=== PATIENT | female | born 1955 | race Caucasian/White ===

== ENCOUNTER 2020-02-25 19:18 | Emergency (ER) | payer BC ==
[~2020-02-25] VITALS: Ht 152.4 cm; Wt 53.6 kg
[~2020-02-25 19:18] MED LIST: ALPR0.25 PO; AMIT50TA PO; ASPI-612 PO; ATOR20TA58 PO; ESTR0.5T PO; HYDR-2761 PO; METO25TA4 PO; TICA90TA PO
[2020-02-25] MEDS ORDERED: IV NORMAL SALINE 1000ML BAG 1,000 ML IV SCH (19:40)
[2020-02-25] MEDS ORDERED: ASPIRIN CHEWABLE 81 MG TABLET. PO ONE (19:45)
[2020-02-25 19:58] LABS: BASO % 1 % (0-3); EOS % 1 % (0-3); HEMATOCRIT 47.2 % (36.0-47.0); HEMOGLOBIN 15.9 g/dL (12.0-15.5); LYMPH % 49 % (24-48); MEAN CORPUSCULAR HEMOGLOBIN 31 pg (25-35); MEAN CORPUSCULAR HGB CONC 34 g/dL (31-37); MEAN CORPUSCULAR VOLUME 92 fL (79-100); MONO # 0.4 x10^3/uL (0.0-1.1); MONO % 7 % (0-9); NEUT # 2.6 x10^3/uL (1.8-7.7); NEUT % 43 % (31-73); PLATELET COUNT 195 x10^3/uL (140-400); RED BLOOD COUNT 5.15 x10^6/uL (3.50-5.40); RED CELL DISTRIBUTION WIDTH 14.4 % (11.5-14.5); WHITE BLOOD COUNT 6.1 x10^3/uL (4.0-11.0)
[2020-02-25 20:07] LABS: CALCIUM 9.2 mg/dL (8.5-10.1); CREATININE 0.9 mg/dL (0.6-1.0); GFR 63.2; POTASSIUM 3.7 mmol/L (3.5-5.1)
--- NOTE | 2020-02-25 20:11 | PHYS DOC ---
Past Medical History Past Medical History: Depression, Hypertension, [place], Other Additional Past Medical Histor: STEMI Past Surgical History: Hysterectomy, Other Additional Past Surgical Histo: CARDIAC STENT Smoking Status: Former Smoker Alcohol Use: None Drug Use: Marijuana General Adult EDM: Chief Complaint: SHORTNESS OF BREATH HPI: HPI: Patient is a 64 year old female who presents with complaint of cough and shortness of breath for the last few days. Patient also indicates that she has had some right upper abdominal pain and a little nausea but no vomiting. She states that last night she had diarrhea. She complains of body aches. She rates the pain in her abdomen currently at a 4 out of 10. She is not aware of any exacerbating or alleviating factors. She is not aware of any fever.[] Review of Systems: Review of Systems: Constitutional: Denies fever or chills. [] Respiratory: Complains of cough and shortness of breath. [] Cardiovascular: Denies chest pain or edema. [] GI: Complains of right upper abdominal pain with nausea. Denies vomiting but has had some diarrhea. [] Integument: Denies rash. [] Neurologic: Denies headache, focal weakness or sensory changes. [] A full 10 point review of systems has been reviewed and is otherwise negative. Heart Score: Risk Factors: Risk Factors: DM, Current or recent (<one month) smoker, HTN, HLP, family history of CAD, obesity. Risk Scores: Score 0 - 3: 2.5% MACE over next 6 weeks - Discharge Home Score 4 - 6: 20.3% MACE over next 6 weeks - Admit for Clinical Observation Score 7 - 10: 72.7% MACE over next 6 weeks - Early Invasive Strategies Current Medications: Current Medications Medications (Trade) Dose Ordered Sig/[facility] Start Time Stop Time Status Last Admin Dose Admin Aspirin (Aspirin Chewable) 324 mg 1X ONCE 02/25/20 19:45 02/25/20 19:46 DC 02/25/20 19:53 324 MG Sodium Chloride 1,000 ml @ 1,000 mls/hr Q1H 02/25/20 19:40 02/25/20 20:39 02/25/20 19:50 1,000 MLS/HR Allergies: Allergies: Allergies Coded Allergies Type Severity Reaction Last Updated Verified Penicillins Allergy Intermediate UNKNOWN 03/22/16 Yes Physical Exam: PE: Constitutional: Well developed, well nourished, no acute distress, non-toxic appearance. [] HENT: Normocephalic, atraumatic, bilateral external ears normal, oropharynx moist, no oral exudates, nose normal. [] Eyes: PERRLA, EOMI, conjunctiva normal, no discharge. [] Neck: Normal range of motion, no tenderness, supple, no stridor. [] Cardiovascular:Heart rate regular rhythm, no murmur [] Lungs & Thorax: Bilateral breath sounds clear to auscultation [] Abdomen: Bowel sounds normal, soft, no tenderness, no masses, no pulsatile masses. [] Skin: Warm, dry, no erythema, no rash. [] Back: No tenderness, no CVA tenderness. [] Extremities: No tenderness, no cyanosis, no clubbing, ROM intact, no edema. [] Neurologic: Alert and oriented X 3, normal motor function, normal sensory function, no focal deficits noted. [] Psychologic: Affect normal, judgement normal, mood normal. [] Current Patient Data: Labs: Laboratory Tests Test 02/25/20 19:45 White Blood Count 6.1 x10^3/uL (4.0-11.0) Red Blood Count 5.15 x10^6/uL (3.50-5.40) Hemoglobin 15.9 g/dL (12.0-15.5) H Hematocrit 47.2 % (36.0-47.0) H Mean Corpuscular Volume 92 fL (79-100) Mean Corpuscular Hemoglobin 31 pg (25-35) Mean Corpuscular Hemoglobin Concent 34 g/dL (31-37) Red Cell Distribution Width 14.4 % (11.5-14.5) Platelet Count 195 x10^3/uL (140-400) Neutrophils (%) (Auto) 43 % (31-73) Lymphocytes (%) (Auto) 49 % (24-48) H Monocytes (%) (Auto) 7 % (0-9) Eosinophils (%) (Auto) 1 % (0-3) Basophils (%) (Auto) 1 % (0-3) Neutrophils # (Auto) 2.6 x10^3/uL (1.8-7.7) Lymphocytes # (Auto) 3.0 x10^3/uL (1.0-4.8) Monocytes # (Auto) 0.4 x10^3/uL (0.0-1.1) Eosinophils # (Auto) 0.0 x10^3/uL (0.0-0.7) Basophils # (Auto) 0.0 x10^3/uL (0.0-0.2) Laboratory Tests 02/25/20 19:45 EKG: EKG: EKG demonstrates sinus rhythm with rate of 59.[] Radiology/Procedures: Radiology/Procedures: [] Impression: PROCEDURE: PORTABLE CHEST 1V PORTABLE CHEST 1V 02/25/2020 7:40 PM INDICATION: Shortness of breath, chest pain COMPARISON: None available TECHNIQUE: Portable frontal view of the chest is provided. FINDINGS: The cardiomediastinal silhouette is within normal limits. Lungs are clear. Stable calcified left hilar lymph node. There are no significant pleural effusions. There is no pulmonary vascular congestion. No pneumothorax. No suspicious osseous abnormality. IMPRESSION: There is no acute cardiopulmonary process. Electronically signed by: Gabrielle Jacobo MD (02/25/2020 8:08 PM) [facility] PROCEDURE: ABDOMEN LTD ABDOMEN LTD History: Right upper quadrant pain Comparison: None. Findings: Multiple sonographic images of the abdomen are submitted. Gallbladder is present without intraluminal abnormality, wall thickening, or pericholecystic fluid. Hepatic echotexture is within normal limits, no focal hepatic lesion demonstrated. Right lobe of the liver measured 15.1 cm longitudinal. Common bile duct is borderline 0.6 cm. There is no abnormality of the visualized pancreas. Right kidney measured 10 x 4 x 4.6 cm. There is right renal pelviectasis. There is segmental visualization of the inferior vena cava. Impression: 1. There is right renal pelviectasis. Common bile duct is borderline in caliber. Electronically signed by: Bryon Rich MD (02/25/2020 9:01 PM) [facility] Course & Med Decision Making: Course & Med Decision Making Pertinent Labs and Imaging studies reviewed. (See chart for details) [] Dragon Disclaimer: Dragon Disclaimer: This electronic medical record was generated, in whole or in part, using a voice recognition dictation system. COVID-19 Patient Risks: Age 65 or older: No Sign of co-morbidity: Yes Exp to person + for COVID: No Exp to PUI: No Travel from affected area: No Lower respiratory symptoms: Yes Fever: No Other: No PPE Use: Full PPE with N95 mask or PAPR: Yes Departure Departure Impression: Primary Impression: Bronchitis Additional Impressions: Dyspnea Qualified Codes: R06.00 - Dyspnea, unspecified Suspected COVID-19 virus infection Disposition: HOME, SELF-CARE Condition: STABLE Referrals: BRITTANEY ANGELO (PCP) Patient Instructions: Bronchitis, Shortness of Breath Additional Instructions: I would recommend home quarantine for the next 14 days. Take prescribed medication as directed. Scripts Azithromycin (ZITHROMAX) 250 Mg Tablet 1 PKG PO UD, #6 TAB Prov: EMORY OH Jr. DO 02/25/20 EMORY OH Jr. DO Feb 25, 2020 20:11
[2020-02-25 20:14] LABS: ALBUMIN 3.9 g/dL (3.4-5.0); TOTAL BILIRUBIN 0.5 mg/dL (0.2-1.0); TOTAL PROTEIN 7.8 g/dL (6.4-8.2)
[2020-02-25] MEDS ORDERED: cloNIDine HCL 0.1 MG TABLET PO ONE (20:15)
--- NOTE | 2020-02-25 21:04 | RAD ---
ABDOMEN LTD History: Right upper quadrant pain Comparison: None. Findings: Multiple sonographic images of the abdomen are submitted. Gallbladder is present without intraluminal abnormality, wall thickening, or pericholecystic fluid. Hepatic echotexture is within normal limits, no focal hepatic lesion demonstrated. Right lobe of the liver measured 15.1 cm longitudinal. Common bile duct is borderline 0.6 cm. There is no abnormality of the visualized pancreas. Right kidney measured 10 x 4 x 4.6 cm. There is right renal pelviectasis. There is segmental visualization of the inferior vena cava. Impression: 1. There is right renal pelviectasis. Common bile duct is borderline in caliber. Electronically signed by: Bryon Rich MD (02/25/2020 9:01 PM) [facility]
[2020-02-25 21:13] LABS: BILIRUBIN,URINE NEGATIVE (NEG); CLARITY,URINE CLEAR; COLOR,URINE YELLOW; NITRITE,URINE NEGATIVE (NEG); PROTEIN,URINE NEGATIVE (NEG-TRACE); UROBILINOGEN,URINE 0.2 mg/dL (0.2 mg/dL)
[2020-02-25 21:22] LABS: BACTERIA,URINE 0 /HPF (0-FEW); SQUAMOUS EPITHELIAL CELL,UR FEW /LPF
[2020-02-25] MEDS ORDERED: AZIT250T PO (22:24)
[2020-02-25 22:32] VITALS: BP 183/84
--- NOTE | 2020-02-26 15:45 | EKG ---
[facility] [address] [place] [address] Test Date: 2020-02-25 Test Time: 19:29:06 Pat Name: PAKO SCHAFER Department: Room: Gender: F [employer]: : 1955 Requested By: EMORY OH Order Number: [id number] Reading MD: Gael Badillo Measurements Intervals [place] Rate: 59 P: MT: QRS: 75 QRSD: 92 T: 84 QT: 432 QTc: 432 Interpretive Statements SINUS RHYTHM Electronically Signed On 02-27-2020 20:03:52 CDT by Gael Badillo
== END 2020-02-25 22:45 | disposition home or self-care (01) ==
LOC: ER 19:18
DX: J40 Bronchitis, not specified as acute or chronic (principal); Z03.818 Encounter for observation for suspected exposure to other biological agents ruled out; I10 Essential (primary) hypertension; I25.2 Old myocardial infarction; Z87.891 Personal history of nicotine dependence; Z95.5 Presence of coronary angioplasty implant and graft; Z88.0 Allergy status to penicillin
CPT/HCPCS: 36415; 71045; 76705; 80053; 81001; 83605; 83690; 83735; 83880; 84484; 85025; 87040; 87635; 93005; 96360; 99285; J7030

== ENCOUNTER 2020-03-03 23:36 | Observation (INO) | payer BC ==
[~2020-03-03] VITALS: Ht 152.4 cm; Wt 46.9 kg
[~2020-03-03 23:36] MED LIST changes: +AZIT250T PO
[2020-03-04] VITALS (7 sets, daily range): BP systolic 84–125; BP diastolic 55–106
[2020-03-04] MEDS ORDERED: ATOR80TA2 PO (00:14)
[2020-03-04] MEDS ORDERED: LOSA-73 PO (00:14)
[2020-03-04] MEDS ORDERED: TICA60TA PO (00:14)
[2020-03-04] MEDS: ALPRAZolam 0.25 MG TABLET PO PRN ×3 (00:38→18:49)
[2020-03-04] MEDS: LOSARTAN POTASSIUM 50 MG TABLET. PO SCH ×2 (00:39→20:41)
[2020-03-04] MEDS ORDERED: AZITHROMYCIN 250 MG TABLET. PO SCH ×2 (01:00→09:00)
[2020-03-04 05:14] LABS: BASO % 0 % (0-3); EOS % 0 % (0-3); HEMATOCRIT 44.2 % (36.0-47.0); HEMOGLOBIN 14.6 g/dL (12.0-15.5); LYMPH % 22 % (24-48); MEAN CORPUSCULAR HEMOGLOBIN 31 pg (25-35); MEAN CORPUSCULAR HGB CONC 33 g/dL (31-37); MEAN CORPUSCULAR VOLUME 93 fL (79-100); MONO % 1 % (0-9); NEUT # 3.6 x10^3/uL (1.8-7.7); NEUT % 77 % (31-73); PLATELET COUNT 157 x10^3/uL (140-400); RED BLOOD COUNT 4.75 x10^6/uL (3.50-5.40); RED CELL DISTRIBUTION WIDTH 13.8 % (11.5-14.5); WHITE BLOOD COUNT 4.7 x10^3/uL (4.0-11.0)
[2020-03-04 05:26] LABS: CALCIUM 8.7 mg/dL (8.5-10.1); POTASSIUM 4.2 mmol/L (3.5-5.1)
[2020-03-04] MEDS: ASPIRIN ENTERIC COATED 81 MG TABLET.DR. PO SCH (08:10)
[2020-03-04] MEDS: BRILINTA 60 MG PO SCH ×2 (08:10→20:40)
[2020-03-04] MEDS ORDERED: TICAGRELOR 90 MG TABLET. PO SCH (09:00)
[2020-03-04] MEDS: METOPROLOL TART IMMED RELEASE 25 MG TABLET. PO SCH ×2 (09:00→20:41)
--- NOTE | 2020-03-04 10:34 | PDOC2 ---
CONSULT Date of Consult Date of Consult DATE: 03/04/20 TIME: 10:27 Reason for Consult Reason for Consult: Chest pain Referring Physician Referring Physician: Dr. Goodrich Identification/Chief Complaint Chief Complaint Chest pain and headache Source Source: Chart review, Patient History of Present Illness Reason for Visit: The patient is a 64-year-old female who was initially seen in the [facility] emergency room due to chest pain and headache. Patient had a CT head scan that showed no acute intracranial changes. Chest x-ray showed no acute changes but was positive for emphysema. Her EKG showed nonspecific T wave changes. Troponin was normal. The patient has a previous cardiac history including an inferior wall ST elevated myocardial infarction on 02/26/2016 at which time she received a 3.0 x 23 drug-eluting stent to the right coronary artery. She also has a history of difficult to control hypertension and hyperlipidemia. Patient was transferred to [place] for further work-up of her chest discomfort. At the present time she is resting relatively comfortably. She denies any chest pain. A second troponin was normal at less than 0.017. Past Medical History Cardiovascular: CAD, HTN, [place], Hyperlipidemia Pulmonary: Bronchitis, COPD, Other (Emphysema) Psych: Depression Past Surgical History Past Surgical History: , Hysterectomy, Other (Coronary stent.) Family History Family History: Hypertension Social History <1 pack per day ALCOHOL: rare Current Medications Current Medications Current Medications Alprazolam (Xanax) 0.25 mg PRN BID PRN PO ANXIETY / AGITATION Last administered on 03/04/20at 00:38; Start 03/04/20 at 00:30 Aspirin (Ecotrin) 81 mg DAILYWBKFT PO Last administered on 03/04/20at 08:10; Start 03/04/20 at 08:00 Azithromycin (Zithromax) 250 mg DAILY PO ; Start 03/04/20 at 09:00; Stop 03/04/20 at 00:41; Status DC Losartan Potassium (Cozaar) 50 mg HS PO Last administered on 03/04/20at 00:39; Start 03/04/20 at 00:30 Metoprolol Tartrate (Lopressor) 12.5 mg BID PO ; Start 03/04/20 at 09:00 Amitriptyline HCl (Elavil) 50 mg QHS PO ; Start 03/04/20 at 21:00 Atorvastatin Calcium (Lipitor) 80 mg HS PO ; Start 03/04/20 at 21:00 Ticagrelor (Brilinta) 60 mg BID PO ; Start 03/04/20 at 09:00; Stop 03/04/20 at 01:04; Status DC Azithromycin (Zithromax) 250 mg HS PO Last administered on 03/04/20at 01:15; Start 03/04/20 at 01:00; Stop 03/06/20 at 21:30 Non-Formulary Medication 1 ea BID PO Last administered on 03/04/20at 08:10; Start 03/04/20 at 09:00 Active Scripts Active Zithromax (Azithromycin) 250 Mg Tablet 1 Pkg PO UD Metoprolol Tartrate 25 Mg Tablet 12.5 Mg PO BID Aspirin Ec (Aspirin) 81 Mg Tablet. 81 Mg PO DAILYWBKFT Reported Lipitor (Atorvastatin Calcium) 80 Mg Tablet 80 Mg PO HS Brilinta (Ticagrelor) 60 Mg Tablet 60 Mg PO BID Losartan Potassium 50 Mg Tablet 50 Mg PO DAILY Xanax (Alprazolam) 0.25 Mg Tablet 0.25 Mg PO BID PRN Amitriptyline Hcl 50 Mg Tablet 1 Tab PO QHS Allergies Allergies: Coded Allergies: Penicillins (Verified Allergy, Intermediate, UNKNOWN, 03/22/16) ROS General: YES: Fatigue Respiratory: YES: Shortness of breath Cardiovascular: yes Chest Pain Physical Exam General: No acute distress Lungs: Other (Mildly decreased breath sounds) Heart: Regular rate Abdomen: Normal bowel sounds Vitals VITALS Vital Signs Date Time Temp Pulse Resp B/P (MAP) Pulse Ox O2 Delivery O2 Flow Rate FiO2 03/04/20 09:00 50 84/55 03/04/20 08:01 Room Air 03/04/20 07:00 98.6 18 97 98.6 Labs Labs Laboratory Tests Test 03/04/20 04:30 White Blood Count 4.7 x10^3/uL (4.0-11.0) Red Blood Count 4.75 x10^6/uL (3.50-5.40) Hemoglobin 14.6 g/dL (12.0-15.5) Hematocrit 44.2 % (36.0-47.0) Mean Corpuscular Volume 93 fL (79-100) Mean Corpuscular Hemoglobin 31 pg (25-35) Mean Corpuscular Hemoglobin Concent 33 g/dL (31-37) Red Cell Distribution Width 13.8 % (11.5-14.5) Platelet Count 157 x10^3/uL (140-400) Neutrophils (%) (Auto) 77 % (31-73) Lymphocytes (%) (Auto) 22 % (24-48) Monocytes (%) (Auto) 1 % (0-9) Eosinophils (%) (Auto) 0 % (0-3) Basophils (%) (Auto) 0 % (0-3) Neutrophils # (Auto) 3.6 x10^3/uL (1.8-7.7) Lymphocytes # (Auto) 1.0 x10^3/uL (1.0-4.8) Monocytes # (Auto) 0.0 x10^3/uL (0.0-1.1) Eosinophils # (Auto) 0.0 x10^3/uL (0.0-0.7) Basophils # (Auto) 0.0 x10^3/uL (0.0-0.2) Sodium Level 144 mmol/L (136-145) Potassium Level 4.2 mmol/L (3.5-5.1) Chloride Level 110 mmol/L (98-107) Carbon Dioxide Level 23 mmol/L (21-32) Anion Gap 11 (6-14) Blood Urea Nitrogen 27 mg/dL (7-20) Creatinine 1.0 mg/dL (0.6-1.0) Estimated GFR (Cockcroft-Gault) 56.0 Glucose Level 187 mg/dL (70-99) Calcium Level 8.7 mg/dL (8.5-10.1) Troponin I Quantitative < 0.017 ng/mL (0.000-0.055) Laboratory Tests Test 03/04/20 04:30 White Blood Count 4.7 x10^3/uL (4.0-11.0) Red Blood Count 4.75 x10^6/uL (3.50-5.40) Hemoglobin 14.6 g/dL (12.0-15.5) Hematocrit 44.2 % (36.0-47.0) Mean Corpuscular Volume 93 fL (79-100) Mean Corpuscular Hemoglobin 31 pg (25-35) Mean Corpuscular Hemoglobin Concent 33 g/dL (31-37) Red Cell Distribution Width 13.8 % (11.5-14.5) Platelet Count 157 x10^3/uL (140-400) Neutrophils (%) (Auto) 77 % (31-73) Lymphocytes (%) (Auto) 22 % (24-48) Monocytes (%) (Auto) 1 % (0-9) Eosinophils (%) (Auto) 0 % (0-3) Basophils (%) (Auto) 0 % (0-3) Neutrophils # (Auto) 3.6 x10^3/uL (1.8-7.7) Lymphocytes # (Auto) 1.0 x10^3/uL (1.0-4.8) Monocytes # (Auto) 0.0 x10^3/uL (0.0-1.1) Eosinophils # (Auto) 0.0 x10^3/uL (0.0-0.7) Basophils # (Auto) 0.0 x10^3/uL (0.0-0.2) Sodium Level 144 mmol/L (136-145) Potassium Level 4.2 mmol/L (3.5-5.1) Chloride Level 110 mmol/L (98-107) Carbon Dioxide Level 23 mmol/L (21-32) Anion Gap 11 (6-14) Blood Urea Nitrogen 27 mg/dL (7-20) Creatinine 1.0 mg/dL (0.6-1.0) Estimated GFR (Cockcroft-Gault) 56.0 Glucose Level 187 mg/dL (70-99) Calcium Level 8.7 mg/dL (8.5-10.1) Troponin I Quantitative < 0.017 ng/mL (0.000-0.055) Images Images Donnell's CT scan of the head showed no acute changes. Chest x-ray shows no acute changes but is positive for emphysema Assessment/Plan Assessment/Plan 1. Chest pain. Patient's pain has largely resolved. Initial troponins are normal. EKG shows no acute ischemic changes. However the patient does have a history of a myocardial infarction in 2016. We will continue present med ications including beta-blockers and aspirin. Will rule out for myocardial infarction. We will check an echocardiogram tomorrow. Further ischemic testing based on her clinical course. 2. Headache. Improved. No acute changes on CT scanning. Patient does have a history of difficult to control hypertension 3. Hypertension. Reasonable control at this time. We will continue present treatments. 4. Hyperlipidemia. Will continue statins and check lab. 5. COPD/emphysema with continued tobacco abuse. Thank you for allowing us to participate in the care of your patient. PAYTON PLASENCIA MD March 04, 2020 10:34
[2020-03-04] MEDS ORDERED: ACETAMINOPHEN 325 MG TABLET. PO PRN (14:15)
--- NOTE | 2020-03-04 14:42 | EKG ---
[facility] [address] [place] [address] Test Date: 2020-03-04 Test Time: 14:38:52 Pat Name: PAKO SCHAFER Department: Room: 200 1 Gender: F It Professional: : 1955 Requested By: PAYTON PLASENCIA Order Number: [id number] Reading MD: Gael Badillo Measurements Intervals [place] Rate: 63 P: 78 [place]: 142 QRS: 77 QRSD: 100 T: 79 QT: 472 QTc: 487 Interpretive Statements SINUS RHYTHM PROLONGED QT Electronically Signed On 03-06-2020 8:58:45 CDT by Gael Badillo
--- NOTE | 2020-03-04 16:45 | PDOC ---
Provider Note Provider Note History and physical dictated [id number] JANETH MAHMOOD MD March 04, 2020 16:45
[2020-03-04] MEDS: ACETAMINOPHEN 500 MG TABLET PO PRN (17:02)
--- NOTE | 2020-03-04 17:14 | HP ---
ADMIT DATE: 03/03/2020 HISTORY OF PRESENT ILLNESS: This patient is a lynn 64-year-old woman who is a continuity outpatient of Dr. Gao at [facility] who uses the [facility] hospitalist here at [facility]. I am rounding for them this weekend. The patient has had about 2 weeks of sharp respirophasic mid substernal chest pain that initially was accompanied by significant cough without congestion. At baseline, she does have COPD, but that has not given her much trouble through the years. She has a long history of tobacco smoking, but tells me that she quit 2 weeks ago when she fell sick. She was in the Emergency Department here at [facility] about 10 days ago and concern was for COVID-19 at that time. Chest x-ray was unremarkable and the COVID PCR was sent to [facility]. I do not see results reported though presumably negative. The patient tells me that she has been carefully sheltering in place for the last 8 weeks as well as her and they are both retired. They have not been out and about and her children are helping her with the grocery shopping. The patient was given an antibiotic in the ER 10 days ago, which she took and her symptoms persisted. Her mid substernal chest pressure seemed to escalate over the last week and she was quite concerned about this and so presented to the [facility] Emergency Department given that [place] was quite busy when she was here 10 days ago. Because [facility] did not have the ability to consult Cardiology, they transferred her here yesterday evening. I am seeing her now within 24 hours of admission, she says she is feeling a little bit more comfortable. Cardiology has already assessed her and their assistance is appreciated. The patient does have a history of myocardial infarction 4 years ago for which stent was placed. She has not had routine followup with Cardiology, but has been careful about following up with primary care and taking her aspirin. She does tell me that her blood pressure and cholesterol control have been on target. The patient denies any fever, chills, headache, abdominal pain, nausea, vomiting, or change in her bowel habits. All other systems are reviewed and are negative. PAST MEDICAL HISTORY: 1. Longstanding tobacco use. 2. Known COPD that has not given her any issues unless she developed a lower respiratory infection. 3. The patient does report weight loss of about 16 pounds in the last 6 months. She is not sure why. 4. History of myocardial infarction. 5. Hypertension. 6. Anxiety. 7. Hyperlipidemia. MEDICATIONS: Please see the medication reconciliation form. SOCIAL HISTORY: The patient is happily . She and her live independently in their own home. She smoked over a pack per day of tobacco for many years with a greater than 30-[id number]-[id number] history. She denies any alcohol or illicit drugs. FAMILY HISTORY: Reviewed in full and noncontributory to the present illness. PHYSICAL EXAMINATION: VITAL SIGNS: Reviewed since admission and are notable for that the patient has been afebrile, blood pressure has been in the low 100s/70s, heart rate is in the 40s-50s and regular. She is breathing comfortably and saturating 96% on room air. GENERAL: She is a pleasant, thin woman, who appears her stated age, alert and oriented x 3, no acute distress. HEENT: Notable for an excoriated lesion on her right face, which she says is chronic. NECK: Soft and supple. No adenopathy or thyromegaly noted. CHEST: Bilateral equal air entry, though diminished throughout. No crackles or wheezes are noted. HEART: S1, S2 normal. Regular rate and rhythm. No murmurs or gallops are noted. ABDOMEN: Soft, nontender, nondistended. No masses or organomegaly noted. EXTREMITIES: Unremarkable for acute abnormality. Labs and other studies I am unable to access the [facility] records. LABORATORY DATA: On admission here early this morning are notable for normal creatinine. Electrolytes are on target. Troponin is 0.017. Hemoglobin is 14.6, platelet count is 157. EKG done this morning is unavailable for viewing, but per Cardiology has been unremarkable. ASSESSMENT AND PLAN: A 64-year-old woman with over 2 weeks of intermittent sharp substernal respirophasic chest pain, admitted with concern for acute coronary syndrome given her history. Pain certainly sounds atypical for acute coronary syndrome, but appreciate cardiology input and agree with continues assessment. We will also proceed with CT chest, abdomen and pelvis given the patient's longstanding tobacco use and reported weight loss. We will track down the formal results of the COVID test from 10 days ago, which appears to be negative from the record. Inpatient status is most appropriate as we anticipate a length of stay at least 2-3 midnights while we work this through. The patient is up moving about the room and does not need anything else for DVT prophylaxis. JANETH MAHMOOD MD DR: JESSICA/gama JOB#: [id number] / [id number] BRITTANEY Freeman
[2020-03-04] MEDS: ATORVASTATIN CALCIUM 40 MG TABLET. PO SCH (20:40)
[2020-03-04] MEDS: AMITRIPTYLINE HCL 25 MG TABLET. PO SCH (20:40)
[2020-03-04] MEDS: LACTOBACILLUS RHAMNOSUS GG 1 CAPSULE. PO SCH (20:40)
[2020-03-05 03:09] VITALS: BP 88/55
[2020-03-05 05:27] LABS: ALBUMIN 2.9 g/dL (3.4-5.0); CALCIUM 8.1 mg/dL (8.5-10.1); POTASSIUM 4.1 mmol/L (3.5-5.1); TOTAL BILIRUBIN 0.4 mg/dL (0.2-1.0); TOTAL PROTEIN 5.9 g/dL (6.4-8.2)
[2020-03-05 05:31] LABS: BASO % 0 % (0-3); EOS % 0 % (0-3); HEMATOCRIT 41.4 % (36.0-47.0); HEMOGLOBIN 13.8 g/dL (12.0-15.5); LYMPH % 28 % (24-48); MEAN CORPUSCULAR HEMOGLOBIN 31 pg (25-35); MEAN CORPUSCULAR HGB CONC 33 g/dL (31-37); MEAN CORPUSCULAR VOLUME 92 fL (79-100); MONO # 0.7 x10^3/uL (0.0-1.1); MONO % 7 % (0-9); NEUT # 7.1 x10^3/uL (1.8-7.7); NEUT % 65 % (31-73); PLATELET COUNT 148 x10^3/uL (140-400); RED BLOOD COUNT 4.49 x10^6/uL (3.50-5.40); RED CELL DISTRIBUTION WIDTH 14.1 % (11.5-14.5); WHITE BLOOD COUNT 10.9 x10^3/uL (4.0-11.0)
[2020-03-05 05:38] LABS: DIRECT BILIRUBIN 0.1 mg/dL (0.0-0.2)
[2020-03-05 05:39] LABS: CHOLESTEROL/HDL RATIO 1.9
[2020-03-05 07:00] VITALS: BP 101/60
[2020-03-05] MEDS: ALPRAZolam 0.25 MG TABLET PO PRN ×2 (07:42→20:27)
[2020-03-05] MEDS ORDERED: CONTRAST GIVEN. MC PRN (08:45)
[2020-03-05] MEDS ORDERED: IOHEXOL 240 MG/ML 50ML VIAL. PO ONE (09:00)
[2020-03-05] MEDS ORDERED: IOHEXOL 300 MG/ML 100ML VIAL. IV ONE (09:00)
--- NOTE | 2020-03-05 09:54 | RAD ---
EXAM: CT Chest, Abdomen, and Pelvis with IV contrast INDICATION: Unexplained weight loss. TECHNIQUE: Multi-detector row CT images were acquired from the thoracic inlet through the ischial tuberosities with the use of IV contrast. Sagittal and coronal images were acquired from the transaxial data. All CT scans performed at this facility utilize dose optimization techniques as appropriate to the exam, including the following: Automated exposure control and adjustment of the mA and/or KV according to patient size (this includes techniques or standardized protocols for targeted exams where dose is indication/reason for exam). IV CONTRAST: Administered ORAL CONTRAST: Administered COMPARISON: Abdomen pelvis CT with IV contrast of 03/22/2016 FINDINGS: CHEST: CARDIOVASCULAR: Unremarkable MEDIASTINUM & SERGE: No adenopathy or masses. LUNGS: Mild centrilobular emphysematous change. There is a 6 mm nodule in the right lateral costophrenic angle (best appreciated on axial image 54 of series 2) as well as minimal bibasilar atelectatic changes in the posterior costophrenic angles. Otherwise no infiltrate, nodule, or other focal abnormality. PLEURAL SPACE: No pleural effusions or pneumothorax. OSSEOUS & SOFT TISSUE: Unremarkable ABDOMEN/PELVIS: LIVER: Unremarkable BILIARY SYSTEM: Gallbladder is unremarkable. Bile ducts are not dilated. PANCREAS: Unremarkable SPLEEN: Unremarkable ADRENALS: Unremarkable KIDNEYS & URETERS: Unremarkable BLADDER: Unremarkable REPRODUCTIVE ORGANS: Hysterectomy. GASTROINTESTINAL: The stomach, small bowel, and colon are unremarkable. The appendix is normal. MESENTERY/PERITONEUM/RETROPERITONEUM: Unremarkable VASCULAR: Unremarkable LYMPH NODES: No adenopathy OSSEOUS & SOFT TISSUES: Lumbar spinal degenerative changes and mild osteopenia. IMPRESSION: 1. No specific findings to explain unexplained weight loss. In particular, no evidence of malignancy is identified. 2. A 6 mm right lower lobe pulmonary nodule is recommended for follow-up in 12 months if the patient is low risk for malignancy or 6 months if the patient is considered at high risk. Electronically signed by: Eloisa Vivar MD (03/05/2020 9:51 AM) [id number]
--- NOTE | 2020-03-05 10:17 | PDOC ---
PROGRESS NOTES Subjective Subjective Patient seen and examined Objective Objective Vital Signs Date Time Temp Pulse Resp B/P (MAP) Pulse Ox O2 Delivery O2 Flow Rate FiO2 03/05/20 07:50 Room Air 03/05/20 07:00 98.4 48 18 101/60 (74) 97 98.4 Intake and Output 03/05/20 07:00 Intake Total 500 ml Output Total 550 ml Balance -50 ml Intake Oral 500 ml Output Urine Total 550 ml # Voids 1 # Bowel Movements 1 Physical Exam Abdomen: Normal bowel sounds Heart: Regular rate General: No acute distress Lungs: Other (Slightly decreased breath sounds) Assessment Assessment 1. Chest pain. Patient's chest pain has resolved. Troponins are normal. EKG shows no acute ischemic changes. However as noted above the patient does have a history of a myocardial infarction in 2016. We will continue present medications. Will check echocardiogram. Probable outpatient stress testing. 2. Headache. Improved. No acute changes on CT scanning. Patient does have a history of difficult to control hypertension 3. Hypertension. Reasonable control at this time. We will continue present treatments. 4. Hyperlipidemia. Will continue statins. 5. COPD/emphysema with continued tobacco abuse. Comment Review of Relevant I have reviewed the following items kayley (where applicable) has been applied. Labs Laboratory Tests Test 03/04/20 04:30 03/05/20 04:45 White Blood Count 4.7 x10^3/uL (4.0-11.0) 10.9 x10^3/uL (4.0-11.0) Red Blood Count 4.75 x10^6/uL (3.50-5.40) 4.49 x10^6/uL (3.50-5.40) Hemoglobin 14.6 g/dL (12.0-15.5) 13.8 g/dL (12.0-15.5) Hematocrit 44.2 % (36.0-47.0) 41.4 % (36.0-47.0) Mean Corpuscular Volume 93 fL (79-100) 92 fL (79-100) Mean Corpuscular Hemoglobin 31 pg (25-35) 31 pg (25-35) Mean Corpuscular Hemoglobin Concent 33 g/dL (31-37) 33 g/dL (31-37) Red Cell Distribution Width 13.8 % (11.5-14.5) 14.1 % (11.5-14.5) Platelet Count 157 x10^3/uL (140-400) 148 x10^3/uL (140-400) Neutrophils (%) (Auto) 77 % (31-73) 65 % (31-73) Lymphocytes (%) (Auto) 22 % (24-48) 28 % (24-48) Monocytes (%) (Auto) 1 % (0-9) 7 % (0-9) Eosinophils (%) (Auto) 0 % (0-3) 0 % (0-3) Basophils (%) (Auto) 0 % (0-3) 0 % (0-3) Neutrophils # (Auto) 3.6 x10^3/uL (1.8-7.7) 7.1 x10^3/uL (1.8-7.7) Lymphocytes # (Auto) 1.0 x10^3/uL (1.0-4.8) 3.0 x10^3/uL (1.0-4.8) Monocytes # (Auto) 0.0 x10^3/uL (0.0-1.1) 0.7 x10^3/uL (0.0-1.1) Eosinophils # (Auto) 0.0 x10^3/uL (0.0-0.7) 0.0 x10^3/uL (0.0-0.7) Basophils # (Auto) 0.0 x10^3/uL (0.0-0.2) 0.0 x10^3/uL (0.0-0.2) Sodium Level 144 mmol/L (136-145) 146 mmol/L (136-145) Potassium Level 4.2 mmol/L (3.5-5.1) 4.1 mmol/L (3.5-5.1) Chloride Level 110 mmol/L (98-107) 113 mmol/L (98-107) Carbon Dioxide Level 23 mmol/L (21-32) 27 mmol/L (21-32) Anion Gap 11 (6-14) 6 (6-14) Blood Urea Nitrogen 27 mg/dL (7-20) 26 mg/dL (7-20) Creatinine 1.0 mg/dL (0.6-1.0) 1.0 mg/dL (0.6-1.0) Estimated GFR (Cockcroft-Gault) 56.0 56.0 Glucose Level 187 mg/dL (70-99) 122 mg/dL (70-99) Calcium Level 8.7 mg/dL (8.5-10.1) 8.1 mg/dL (8.5-10.1) Troponin I Quantitative < 0.017 ng/mL (0.000-0.055) BUN/Creatinine Ratio 26 (6-20) Total Bilirubin 0.4 mg/dL (0.2-1.0) Direct Bilirubin 0.1 mg/dL (0.0-0.2) Aspartate Amino Transf (AST/SGOT) 24 U/L (15-37) Alanine Aminotransferase (ALT/SGPT) 41 U/L (14-59) Alkaline Phosphatase 78 U/L (46-116) Total Protein 5.9 g/dL (6.4-8.2) Albumin 2.9 g/dL (3.4-5.0) Albumin/Globulin Ratio 1.0 (1.0-1.7) Triglycerides Level 73 mg/dL (0-150) Cholesterol Level 89 mg/dL (0-200) LDL Cholesterol, Calculated 28 mg/dL (0-100) VLDL Cholesterol, Calculated 15 mg/dL (0-40) Non-HDL Cholesterol Calculated 43 mg/dL (0-129) HDL Cholesterol 46 mg/dL (40-60) Cholesterol/HDL Ratio 1.9 Thyroid Stimulating Hormone (TSH) 0.357 uIU/mL (0.358-3.74) Laboratory Tests Test 03/05/20 04:45 White Blood Count 10.9 x10^3/uL (4.0-11.0) Red Blood Count 4.49 x10^6/uL (3.50-5.40) Hemoglobin 13.8 g/dL (12.0-15.5) Hematocrit 41.4 % (36.0-47.0) Mean Corpuscular Volume 92 fL (79-100) Mean Corpuscular Hemoglobin 31 pg (25-35) Mean Corpuscular Hemoglobin Concent 33 g/dL (31-37) Red Cell Distribution Width 14.1 % (11.5-14.5) Platelet Count 148 x10^3/uL (140-400) Neutrophils (%) (Auto) 65 % (31-73) Lymphocytes (%) (Auto) 28 % (24-48) Monocytes (%) (Auto) 7 % (0-9) Eosinophils (%) (Auto) 0 % (0-3) Basophils (%) (Auto) 0 % (0-3) Neutrophils # (Auto) 7.1 x10^3/uL (1.8-7.7) Lymphocytes # (Auto) 3.0 x10^3/uL (1.0-4.8) Monocytes # (Auto) 0.7 x10^3/uL (0.0-1.1) Eosinophils # (Auto) 0.0 x10^3/uL (0.0-0.7) Basophils # (Auto) 0.0 x10^3/uL (0.0-0.2) Sodium Level 146 mmol/L (136-145) Potassium Level 4.1 mmol/L (3.5-5.1) Chloride Level 113 mmol/L (98-107) Carbon Dioxide Level 27 mmol/L (21-32) Anion Gap 6 (6-14) Blood Urea Nitrogen 26 mg/dL (7-20) Creatinine 1.0 mg/dL (0.6-1.0) Estimated GFR (Cockcroft-Gault) 56.0 BUN/Creatinine Ratio 26 (6-20) Glucose Level 122 mg/dL (70-99) Calcium Level 8.1 mg/dL (8.5-10.1) Total Bilirubin 0.4 mg/dL (0.2-1.0) Direct Bilirubin 0.1 mg/dL (0.0-0.2) Aspartate Amino Transf (AST/SGOT) 24 U/L (15-37) Alanine Aminotransferase (ALT/SGPT) 41 U/L (14-59) Alkaline Phosphatase 78 U/L (46-116) Total Protein 5.9 g/dL (6.4-8.2) Albumin 2.9 g/dL (3.4-5.0) Albumin/Globulin Ratio 1.0 (1.0-1.7) Triglycerides Level 73 mg/dL (0-150) Cholesterol Level 89 mg/dL (0-200) LDL Cholesterol, Calculated 28 mg/dL (0-100) VLDL Cholesterol, Calculated 15 mg/dL (0-40) Non-HDL Cholesterol Calculated 43 mg/dL (0-129) HDL Cholesterol 46 mg/dL (40-60) Cholesterol/HDL Ratio 1.9 Thyroid Stimulating Hormone (TSH) 0.357 uIU/mL (0.358-3.74) Medications Current Medications Alprazolam (Xanax) 0.25 mg PRN BID PRN PO ANXIETY / AGITATION Last administered on 03/05/20 07:42; Start 03/04/20 at 00:30 Aspirin (Ecotrin) 81 mg DAILYWBKFT PO Last administered on 03/04/20at 08:10; Start 03/04/20 at 08:00 Azithromycin (Zithromax) 250 mg DAILY PO ; Start 03/04/20 at 09:00; Stop 03/04/20 at 00:41; Status DC Losartan Potassium (Cozaar) 50 mg HS PO Last administered on 03/04/20at 20:41; Start 03/04/20 at 00:30 Metoprolol Tartrate (Lopressor) 12.5 mg BID PO Last administered on 03/04/20 20:41; Start 03/04/20 at 09:00; Stop 03/05/20 at 09:11; Status DC Amitriptyline HCl (Elavil) 50 mg QHS PO Last administered on 03/04/20 20:40; Start 03/04/20 at 21:00 Atorvastatin Calcium (Lipitor) 80 mg HS PO Last administered on 03/04/20 20:40; Start 03/04/20 at 21:00 Ticagrelor (Brilinta) 60 mg BID PO ; Start 03/04/20 at 09:00; Stop 03/04/20 at 01:04; Status DC Azithromycin (Zithromax) 250 mg HS PO Last administered on 03/04/20at 01:15; Start 03/04/20 at 01:00; Stop 03/04/20 at 16:52; Status DC Non-Formulary Medication 1 ea BID PO Last administered on 03/04/20 20:40; Start 03/04/20 at 09:00 Lactobacillus Rhamnosus (Culturelle) 1 cap BID PO Last administered on 03/04/20 20:40; Start 03/04/20 at 21:00 Acetaminophen (Tylenol) 650 mg PRN Q6HRS PRN PO PAIN; Start 03/04/20 at 14:15; Stop 03/04/20 at 16:32; Status DC Acetaminophen (Tylenol) 500 mg PRN Q6HRS PRN PO MILD PAIN / TEMP > 100.3'F Last administered on 03/04/20at 17:02; Start 03/04/20 at 16:30 Iohexol (Omnipaque 300 Mg/ml) 75 ml 1X ONCE IV Last administered on 03/05/20at 09:26; Start 03/05/20 at 09:00; Stop 03/05/20 at 09:01; Status DC Iohexol (Omnipaque 240 Mg/ml) 50 ml 1X ONCE PO Last administered on 03/05/20at 08:35; Start 03/05/20 at 09:00; Stop 03/05/20 at 09:01; Status DC Info (CONTRAST GIVEN -- Rx MONITORING) 1 each PRN DAILY PRN MC SEE COMMENTS; Start 03/05/20 at 08:45; Stop 03/07/20 at 08:44 Active Scripts Active Zithromax (Azithromycin) 250 Mg Tablet 1 Pkg PO UD Metoprolol Tartrate 25 Mg Tablet 12.5 Mg PO BID Aspirin Ec (Aspirin) 81 Mg Tablet.dr 81 Mg PO DAILYWBKFT Reported Lipitor (Atorvastatin Calcium) 80 Mg Tablet 80 Mg PO HS Brilinta (Ticagrelor) 60 Mg Tablet 60 Mg PO BID Losartan Potassium 50 Mg Tablet 50 Mg PO DAILY Xanax (Alprazolam) 0.25 Mg Tablet 0.25 Mg PO BID PRN Amitriptyline Hcl 50 Mg Tablet 1 Tab PO QHS Vitals/I & O Vital Sign - Last 24 Hours 03/04/20 03/04/20 03/04/20 03/04/20 10:56 15:00 19:39 20:06 Temp 98.1 98.3 98.3 98.1 98.3 98.3 Pulse 64 67 57 Resp 18 18 18 B/P (MAP) 118/72 (87) 98/57 (71) 107/59 (75) Pulse Ox 96 97 97 O2 Delivery Room Air Room Air Room Air Room Air 03/04/20 03/04/20 03/04/20 03/05/20 20:41 20:41 22:50 03:09 Temp 98.6 98.6 98.6 98.6 Pulse 57 57 50 42 Resp 18 18 B/P (MAP) 107/59 107/59 103/59 (74) 88/55 (66) Pulse Ox 97 97 O2 Delivery Room Air Room Air 03/05/20 03/05/20 07:00 07:50 Temp 98.4 98.4 Pulse 48 Resp 18 B/P (MAP) 101/60 (74) Pulse Ox 97 O2 Delivery Room Air Room Air Intake and Output 03/04/20 03/04/20 03/05/20 15:00 23:00 07:00 Intake Total 380 ml 120 ml Output Total 550 ml Balance 380 ml -430 ml PAYTON PLASENCIA MD March 05, 2020 10:17
[2020-03-05] MEDS: ACETAMINOPHEN 500 MG TABLET PO PRN (10:33)
[2020-03-05] MEDS: ASPIRIN ENTERIC COATED 81 MG TABLET.DR. PO SCH (10:33)
[2020-03-05] MEDS: BRILINTA 60 MG PO SCH ×2 (10:33→20:27)
[2020-03-05] MEDS: LACTOBACILLUS RHAMNOSUS GG 1 CAPSULE. PO SCH ×2 (10:33→20:27)
[2020-03-05 11:00] VITALS: BP 119/72
--- NOTE | 2020-03-05 13:54 | PDOC ---
GENERAL General: Patient examined chart reviewed appreciate cardiology input. We are awaiting echocardiogram likely will be done in the morning. Patient is feeling better up and moving about the room and tolerating her diet. Her work-up has been unremarkable for acute abnormality. Sugar level is high fasting this morning perhaps she had a dose of steroids in the emergency department. We will follow- up with an A1c in the morning. She is happy to hear that her CT chest abdomen and pelvis was unremarkable for acute abnormality that can explain her weight loss. She did have a 6 mm pulmonary nodule that needs follow-up CT scan in 6 months time given her history of tobacco smoking. 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, in remission (3) Atypical chest pain VITAL SIGNS Vital Signs/I&O: Vital Signs Date Time Temp Pulse Resp B/P (MAP) Pulse Ox O2 Delivery O2 Flow Rate FiO2 03/05/20 11:00 97.9 48 18 119/72 (88) 97 Room Air 97.9 I & O 03/04/20 03/04/20 03/05/20 15:00 23:00 07:00 Intake Total 380 ml 120 ml Output Total 550 ml Balance 380 ml -430 ml In general the patient is pleasant alert and oriented x3 no acute distress HEENT exam is unremarkable for acute abnormality Neck is soft and supple no adenopathy or thyromegaly noted Chest bilateral equal air entry though diminished throughout Heart S1-S2 normal regular rate and rhythm no murmurs or gallops are noted Abdomen soft nontender nondistended no masses or organomegaly noted Extremity exam is unremarkable ALLERGIES Allergies: Allergies Coded Allergies Type Severity Reaction Last Updated Verified Penicillins Allergy Intermediate UNKNOWN 03/22/16 Yes MEDS Medications: Current Medications Medications (Trade) Dose Ordered Sig/Cara Route PRN Reason Start Time Stop Time Status Last Admin Dose Admin Amitriptyline HCl (Elavil) 50 mg QHS PO 03/04/20 21:00 03/04/20 20:40 Atorvastatin Calcium (Lipitor) 80 mg HS PO 03/04/20 21:00 03/04/20 20:40 Lactobacillus Rhamnosus (Culturelle) 1 cap BID PO 03/04/20 21:00 03/05/20 10:33 Acetaminophen (Tylenol) 500 mg PRN Q6HRS PRN PO MILD PAIN / TEMP > 100.3'F 03/04/20 16:30 03/05/20 10:33 Iohexol (Omnipaque 300 Mg/ml) 75 ml 1X ONCE IV 03/05/20 09:00 03/05/20 09:01 DC 03/05/20 09:26 Iohexol (Omnipaque 240 Mg/ml) 50 ml 1X ONCE PO 03/05/20 09:00 03/05/20 09:01 DC 03/05/20 08:35 LAB Lab: Laboratory Tests Test 03/05/20 04:45 White Blood Count 10.9 x10^3/uL (4.0-11.0) Red Blood Count 4.49 x10^6/uL (3.50-5.40) Hemoglobin 13.8 g/dL (12.0-15.5) Hematocrit 41.4 % (36.0-47.0) Mean Corpuscular Volume 92 fL (79-100) Mean Corpuscular Hemoglobin 31 pg (25-35) Mean Corpuscular Hemoglobin Concent 33 g/dL (31-37) Red Cell Distribution Width 14.1 % (11.5-14.5) Platelet Count 148 x10^3/uL (140-400) Neutrophils (%) (Auto) 65 % (31-73) Lymphocytes (%) (Auto) 28 % (24-48) Monocytes (%) (Auto) 7 % (0-9) Eosinophils (%) (Auto) 0 % (0-3) Basophils (%) (Auto) 0 % (0-3) Neutrophils # (Auto) 7.1 x10^3/uL (1.8-7.7) Lymphocytes # (Auto) 3.0 x10^3/uL (1.0-4.8) Monocytes # (Auto) 0.7 x10^3/uL (0.0-1.1) Eosinophils # (Auto) 0.0 x10^3/uL (0.0-0.7) Basophils # (Auto) 0.0 x10^3/uL (0.0-0.2) Sodium Level 146 mmol/L (136-145) H Potassium Level 4.1 mmol/L (3.5-5.1) Chloride Level 113 mmol/L (98-107) H Carbon Dioxide Level 27 mmol/L (21-32) Anion Gap 6 (6-14) Blood Urea Nitrogen 26 mg/dL (7-20) H Creatinine 1.0 mg/dL (0.6-1.0) Estimated GFR (Cockcroft-Gault) 56.0 BUN/Creatinine Ratio 26 (6-20) H Glucose Level 122 mg/dL (70-99) H Calcium Level 8.1 mg/dL (8.5-10.1) L Total Bilirubin 0.4 mg/dL (0.2-1.0) Direct Bilirubin 0.1 mg/dL (0.0-0.2) Aspartate Amino Transferase (AST) 24 U/L (15-37) Alanine Aminotransferase (ALT) 41 U/L (14-59) Alkaline Phosphatase 78 U/L (46-116) Total Protein 5.9 g/dL (6.4-8.2) L Albumin 2.9 g/dL (3.4-5.0) L Albumin/Globulin Ratio 1.0 (1.0-1.7) Triglycerides Level 73 mg/dL (0-150) Cholesterol Level 89 mg/dL (0-200) LDL Cholesterol, Calculated 28 mg/dL (0-100) VLDL Cholesterol, Calculated 15 mg/dL (0-40) Non-HDL Cholesterol Calculated 43 mg/dL (0-129) HDL Cholesterol 46 mg/dL (40-60) Cholesterol/HDL Ratio 1.9 Thyroid Stimulating Hormone (TSH) 0.357 uIU/mL (0.358-3.74) L Laboratory Tests 03/05/20 04:45 Laboratory Tests 03/05/20 04:45 IMAGING Imaging: ATIENT: PAKO SCHAFER ACCOUNT: [id number] : 1955 LOCATION: [address] [place] [address] AGE: 64 SEX: F EXAM STATUS: ADM IN ORD. PHYSICIAN: JANETH MAHMOOD MD REASON: unexplained weight loss, abdominal pain PROCEDURE: CT CHEST ABD PELVIS W/CONTRAST EXAM: CT Chest, Abdomen, and Pelvis with IV contrast INDICATION: Unexplained weight loss. TECHNIQUE: Multi-detector row CT images were acquired from the thoracic inlet through the ischial tuberosities with the use of IV contrast. Sagittal and coronal images were acquired from the transaxial data. All CT scans performed at this facility utilize dose optimization techniques as appropriate to the exam, including the following: Automated exposure control and adjustment of the mA and/or KV according to patient size (this includes techniques or standardized protocols for targeted exams where dose is indication/reason for exam). IV CONTRAST: Administered ORAL CONTRAST: Administered COMPARISON: Abdomen pelvis CT with IV contrast of 03/22/2016 FINDINGS: CHEST: CARDIOVASCULAR: Unremarkable MEDIASTINUM & SERGE: No adenopathy or masses. LUNGS: Mild centrilobular emphysematous change. There is a 6 mm nodule in the right lateral costophrenic angle (best appreciated on axial image 54 of series 2) as well as minimal bibasilar atelectatic changes in the posterior costophrenic angles. Otherwise no infiltrate, nodule, or other focal abnormality. PLEURAL SPACE: No pleural effusions or pneumothorax. OSSEOUS & SOFT TISSUE: Unremarkable ABDOMEN/PELVIS: LIVER: Unremarkable BILIARY SYSTEM: Gallbladder is unremarkable. Bile ducts are not dilated. PANCREAS: Unremarkable SPLEEN: Unremarkable ADRENALS: Unremarkable KIDNEYS & URETERS: Unremarkable BLADDER: Unremarkable REPRODUCTIVE ORGANS: Hysterectomy. GASTROINTESTINAL: The stomach, small bowel, and colon are unremarkable. The appendix is normal. MESENTERY/PERITONEUM/RETROPERITONEUM: Unremarkable VASCULAR: Unremarkable LYMPH NODES: No adenopathy OSSEOUS & SOFT TISSUES: Lumbar spinal degenerative changes and mild osteopenia. IMPRESSION: 1. No specific findings to explain unexplained weight loss. In particular, no evidence of malignancy is identified. 2. A 6 mm right lower lobe pulmonary nodule is recommended for follow-up in 12 months if the patient is low risk for malignancy or 6 months if the patient is considered at high risk. Electronically signed by: Kris Vivar MD (03/05/2020 9:51 AM) [id number] DICTATED and SIGNED BY: KRIS VIVAR MD DATE: 03/05/20 0951 ASSESSMENT & PLAN A&P Plan as noted above All medications were reviewed in full and may not be reflected on the active medication list in this progress note. Please see the medication administration record for full details. This note was created using [email or web address] and may have omissions and/or errors due to the nature of real-time voice senior gamemaster. JANETH MAHMOOD MD March 05, 2020 13:54
[2020-03-05 15:00] VITALS: BP 115/62
[2020-03-05] MEDS: SERTRALINE 50 MG TABLET. PO SCH (16:13)
[2020-03-05 19:06] VITALS: BP 140/76
--- NOTE | 2020-03-05 19:53 | EKG ---
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
[2020-03-05] MEDS: LOSARTAN POTASSIUM 50 MG TABLET. PO SCH (20:27)
[2020-03-05] MEDS: AMITRIPTYLINE HCL 25 MG TABLET. PO SCH (20:27)
[2020-03-05] MEDS: ATORVASTATIN CALCIUM 40 MG TABLET. PO SCH (20:27)
[2020-03-05 22:36] VITALS: BP 140/79
[2020-03-06 03:00] VITALS: BP 115/68
[2020-03-06 05:15] LABS: BASO % 0 % (0-3); EOS % 0 % (0-3); HEMATOCRIT 42.7 % (36.0-47.0); HEMOGLOBIN 14.1 g/dL (12.0-15.5); LYMPH # 2.4 x10^3/uL (1.0-4.8); LYMPH % 36 % (24-48); MEAN CORPUSCULAR HEMOGLOBIN 30 pg (25-35); MEAN CORPUSCULAR HGB CONC 33 g/dL (31-37); MEAN CORPUSCULAR VOLUME 92 fL (79-100); MONO # 0.4 x10^3/uL (0.0-1.1); MONO % 6 % (0-9); NEUT # 3.8 x10^3/uL (1.8-7.7); NEUT % 57 % (31-73); PLATELET COUNT 147 x10^3/uL (140-400); RED BLOOD COUNT 4.64 x10^6/uL (3.50-5.40); RED CELL DISTRIBUTION WIDTH 13.9 % (11.5-14.5); WHITE BLOOD COUNT 6.7 x10^3/uL (4.0-11.0)
[2020-03-06 05:45] LABS: CALCIUM 8.1 mg/dL (8.5-10.1); CREATININE 0.9 mg/dL (0.6-1.0); GFR 63.2; MAGNESIUM 1.8 mg/dL (1.8-2.4); POTASSIUM 3.8 mmol/L (3.5-5.1); TOTAL BILIRUBIN 0.4 mg/dL (0.2-1.0); TOTAL PROTEIN 6.1 g/dL (6.4-8.2)
[2020-03-06 07:00] VITALS: BP 108/64
[2020-03-06] MEDS: LACTOBACILLUS RHAMNOSUS GG 1 CAPSULE. PO SCH (08:26)
[2020-03-06] MEDS: ALPRAZolam 0.25 MG TABLET PO PRN (08:26)
[2020-03-06] MEDS: SERTRALINE 50 MG TABLET. PO SCH (08:26)
[2020-03-06] MEDS: ASPIRIN ENTERIC COATED 81 MG TABLET.DR. PO SCH (08:26)
[2020-03-06] MEDS: BRILINTA 60 MG PO SCH (08:27)
--- NOTE | 2020-03-06 09:41 | CARD ---
MR#: [id number] Date of Study: 03/06/2020 Ordering Physician: PAYTON PLASENCIA, Referring Physician: PAYTON PLASENCIA, Tech: Thuy Potts [place]ET[place] APPROVED REPORT EXAM: Two-dimensional and M-mode echocardiogram with Doppler and color Doppler. Other Information Quality : Fair INDICATION Cardiac Disease: CAD Chest Pain RISK FACTORS Smoking 2D DIMENSIONS RVDd2.3 (2.9-3.5cm)Left Atrium(2D)2.5 (1.6-4.0cm) IVSd0.8 (0.7-1.1cm)Aortic Root(2D)2.7 (2.0-3.7cm) LVDd4.4 (3.9-5.9cm)LVOT Diameter1.8 (1.8-2.4cm) PWd0.8 (0.7-1.1cm)LVDs1.9 (2.5-4.0cm) FS (%) 30.0 %SV76.3 ml LVEF(%)60.0 (>50%) Aortic Valve AoV Peak David.115.4cm/sAoV VTI20.6cm AO Peak GR.5.3mmHgLVOT Peak David.101.1cm/s AO Mean GR.3mmHgAVA (VMAX)2.12cm2 UVALDO (VTI)2.20cm2 Mitral Valve MV E Chaksnfs43.1cm/sMV DECEL [id number] MV A Dnyhescw07.9cm/sE/A Ratio1.2 Tricuspid Valve TR P. Bjqgbypk818to/sRAP [id number] TR Peak Gr.[id number] Pulmonary Vein S1 Xamuczav27.7cm/sD2 Grgyyyax88.4cm/s LEFT VENTRICLE The left ventricle is normal size. There is normal left ventricular wall thickness. The left ventricu lar systolic function is normal and the ejection fraction is within normal range. The Ejection Fracti on is 55-60%. Septal motion consistent with conduction abnormality. Otherwise, grossly normal wall mo tion. Transmitral Doppler flow pattern is Grade II-pseudonormal filling dynamics. RIGHT VENTRICLE The right ventricle is normal size. The right ventricular systolic function is normal. ATRIA The left atrium size is normal. The right atrium size is normal. The interatrial septum is intact wit h no evidence for an atrial septal defect or patent foramen ovale as noted on 2-D or Doppler imaging. AORTIC VALVE The aortic valve is calcified but opens well. Doppler and Color Flow revealed no significant aortic r egurgitation. There is no significant aortic valvular stenosis. MITRAL VALVE The mitral valve is calcified but opens well. There is no evidence of mitral valve prolapse. There is no mitral valve stenosis. Doppler and Color Flow revealed no mitral valve regurgitation noted. TRICUSPID VALVE The tricuspid valve is normal in structure and function. Doppler and Color Flow revealed physiologica l tricuspid regurgitation. The PA pressure was estimated at 24 mmHg. There is no tricuspid valve sten osis. PULMONIC VALVE The pulmonic valve is not well visualized. Doppler and Color Flow revealed no pulmonic valvular regur gitation. There is no pulmonic valvular stenosis. GREAT VESSELS The aortic root is normal in size. The ascending aorta is not well seen. The IVC is normal in size an d collapses >50% with inspiration. PERICARDIAL EFFUSION There is no evidence of significant pericardial effusion. Critical Notification Critical Value: No <Conclusion> The left ventricular systolic function is normal and the ejection fraction is within normal range. Th e Ejection Fraction is 55-60%. Septal motion consistent with conduction abnormality. Otherwise, grossly normal wall motion. Signed by : Maurice Juan, Electronically Approved : 03/06/2020 09:41:15
[2020-03-06 11:00] VITALS: BP 159/77
--- NOTE | 2020-03-06 11:50 | PDOC ---
PROGRESS NOTES Subjective Subjective Patient feeling better and denied any chest pain Objective Objective Vital Signs Date Time Temp Pulse Resp B/P (MAP) Pulse Ox O2 Delivery O2 Flow Rate FiO2 03/06/20 11:00 97.6 59 16 159/77 (104) 99 Room Air 97.6 Intake and Output 03/06/20 07:00 Intake Total 300 ml Output Total 300 ml Balance 0 ml Intake Oral 300 ml Output Urine Total 300 ml # Voids 1 # Bowel Movements 2 Physical Exam Abdomen: Normal bowel sounds Heart: Regular rate Extremities: No edema General: No acute distress Lungs: Other (Slightly decreased breath sounds) Neuro: Normal speech Psych/Mental Status: Mood NL Assessment Assessment 1. Chest pain with atypical features in a patient with known history of coronary artery disease s/p PCI/stent placement to RCA in the past. Myocardial infarction has been ruled out. 2D echo showed normal LV systolic function without any wall motion abnormalities. Plan for outpatient ischemic evaluation with Lexiscan nuclear stress test. 2. Headache. Improved. No acute changes on CT scanning. 3. Hypertension. Reasonable control at this time. We will continue present treatments. 4. Hyperlipidemia. Will continue statins. 5. COPD/emphysema with continued tobacco abuse. Comment Review of Relevant I have reviewed the following items kayley (where applicable) has been applied. Labs Laboratory Tests Test 03/06/20 04:50 White Blood Count 6.7 x10^3/uL (4.0-11.0) Red Blood Count 4.64 x10^6/uL (3.50-5.40) Hemoglobin 14.1 g/dL (12.0-15.5) Hematocrit 42.7 % (36.0-47.0) Mean Corpuscular Volume 92 fL (79-100) Mean Corpuscular Hemoglobin 30 pg (25-35) Mean Corpuscular Hemoglobin Concent 33 g/dL (31-37) Red Cell Distribution Width 13.9 % (11.5-14.5) Platelet Count 147 x10^3/uL (140-400) Neutrophils (%) (Auto) 57 % (31-73) Lymphocytes (%) (Auto) 36 % (24-48) Monocytes (%) (Auto) 6 % (0-9) Eosinophils (%) (Auto) 0 % (0-3) Basophils (%) (Auto) 0 % (0-3) Neutrophils # (Auto) 3.8 x10^3/uL (1.8-7.7) Lymphocytes # (Auto) 2.4 x10^3/uL (1.0-4.8) Monocytes # (Auto) 0.4 x10^3/uL (0.0-1.1) Eosinophils # (Auto) 0.0 x10^3/uL (0.0-0.7) Basophils # (Auto) 0.0 x10^3/uL (0.0-0.2) Sodium Level 144 mmol/L (136-145) Potassium Level 3.8 mmol/L (3.5-5.1) Chloride Level 109 mmol/L (98-107) Carbon Dioxide Level 27 mmol/L (21-32) Anion Gap 8 (6-14) Blood Urea Nitrogen 20 mg/dL (7-20) Creatinine 0.9 mg/dL (0.6-1.0) Estimated GFR (Cockcroft-Gault) 63.2 BUN/Creatinine Ratio 22 (6-20) Glucose Level 105 mg/dL (70-99) Calcium Level 8.1 mg/dL (8.5-10.1) Magnesium Level 1.8 mg/dL (1.8-2.4) Total Bilirubin 0.4 mg/dL (0.2-1.0) Aspartate Amino Transf (AST/SGOT) 39 U/L (15-37) Alanine Aminotransferase (ALT/SGPT) 66 U/L (14-59) Alkaline Phosphatase 81 U/L (46-116) Total Protein 6.1 g/dL (6.4-8.2) Albumin 3.0 g/dL (3.4-5.0) Albumin/Globulin Ratio 1.0 (1.0-1.7) Medications Current Medications Sertraline HCl (Zoloft) 50 mg DAILY PO Last administered on 03/06/20at 08:26; Start 03/05/20 at 15:00 Vitals/I & O Vital Sign - Last 24 Hours 03/05/20 03/05/20 03/05/20 03/05/20 15:00 19:06 19:34 20:27 Temp 97.9 97.5 97.9 97.5 Pulse 54 66 66 Resp 18 18 B/P (MAP) 115/62 (79) 140/76 (97) 140/76 Pulse Ox 95 95 O2 Delivery Room Air Room Air Room Air 03/05/20 03/06/20 03/06/20 03/06/20 22:36 03:00 07:00 08:00 Temp 97.5 98.2 97.5 97.5 98.2 97.5 Pulse 56 50 49 Resp 16 16 16 B/P (MAP) 140/79 (99) 115/68 (84) 108/64 (79) Pulse Ox 98 100 100 O2 Delivery Room Air Room Air Room Air Room Air 03/06/20 11:00 Temp 97.6 97.6 Pulse 59 Resp 16 B/P (MAP) 159/77 (104) Pulse Ox 99 O2 Delivery Room Air Intake and Output 03/05/20 03/05/20 03/06/20 15:00 23:00 07:00 Intake Total 300 ml 0 ml Output Total 300 ml Balance 300 ml -300 ml 0 ml DARLYN SETH MD March 06, 2020 11:50
--- NOTE | 2020-03-06 12:52 | NUR ---
SS following for discharge planning. SS reviewed pt chart and discussed with pt RN. Pt is from home with spouse and is currently on room air. No PT/OT needs indicated at this time per pt's RN. SS will continue to follow for discharge planning.
[2020-03-06 15:00] VITALS: BP 112/61
--- NOTE | 2020-03-06 15:56 | PDOC3 ---
Discharge Summary Visit Information Date of Admission: March 04, 2020 Date of Discharge: March 06, 2020 Admitting Diagnosis Comment: (1) COPD (chronic obstructive pulmonary disease) with emphysema (2) Tobacco abuse, in remission (3) Atypical chest pain Final Diagnosis Atypical chest pain History of chronic obstructive pulmonary disease secondary to tobacco abuse Anxiety CAD status post PCI and stenting in the past Brief Hospital Course Allergies Allergies Coded Allergies Type Severity Reaction Last Updated Verified Penicillins Allergy Intermediate UNKNOWN 03/22/16 Yes Vital Signs Vital Signs Date Time Temp Pulse Resp B/P (MAP) Pulse Ox O2 Delivery O2 Flow Rate FiO2 03/06/20 15:00 97.6 55 16 112/61 (78) 100 Room Air 97.6 Lab Results Laboratory Tests Test 03/05/20 04:45 03/06/20 04:50 White Blood Count 10.9 x10^3/uL (4.0-11.0) 6.7 x10^3/uL (4.0-11.0) Red Blood Count 4.49 x10^6/uL (3.50-5.40) 4.64 x10^6/uL (3.50-5.40) Hemoglobin 13.8 g/dL (12.0-15.5) 14.1 g/dL (12.0-15.5) Hematocrit 41.4 % (36.0-47.0) 42.7 % (36.0-47.0) Mean Corpuscular Volume 92 fL (79-100) 92 fL (79-100) Mean Corpuscular Hemoglobin 31 pg (25-35) 30 pg (25-35) Mean Corpuscular Hemoglobin Concent 33 g/dL (31-37) 33 g/dL (31-37) Red Cell Distribution Width 14.1 % (11.5-14.5) 13.9 % (11.5-14.5) Platelet Count 148 x10^3/uL (140-400) 147 x10^3/uL (140-400) Neutrophils (%) (Auto) 65 % (31-73) 57 % (31-73) Lymphocytes (%) (Auto) 28 % (24-48) 36 % (24-48) Monocytes (%) (Auto) 7 % (0-9) 6 % (0-9) Eosinophils (%) (Auto) 0 % (0-3) 0 % (0-3) Basophils (%) (Auto) 0 % (0-3) 0 % (0-3) Neutrophils # (Auto) 7.1 x10^3/uL (1.8-7.7) 3.8 x10^3/uL (1.8-7.7) Lymphocytes # (Auto) 3.0 x10^3/uL (1.0-4.8) 2.4 x10^3/uL (1.0-4.8) Monocytes # (Auto) 0.7 x10^3/uL (0.0-1.1) 0.4 x10^3/uL (0.0-1.1) Eosinophils # (Auto) 0.0 x10^3/uL (0.0-0.7) 0.0 x10^3/uL (0.0-0.7) Basophils # (Auto) 0.0 x10^3/uL (0.0-0.2) 0.0 x10^3/uL (0.0-0.2) Sodium Level 146 mmol/L (136-145) 144 mmol/L (136-145) Potassium Level 4.1 mmol/L (3.5-5.1) 3.8 mmol/L (3.5-5.1) Chloride Level 113 mmol/L (98-107) 109 mmol/L (98-107) Carbon Dioxide Level 27 mmol/L (21-32) 27 mmol/L (21-32) Anion Gap 6 (6-14) 8 (6-14) Blood Urea Nitrogen 26 mg/dL (7-20) 20 mg/dL (7-20) Creatinine 1.0 mg/dL (0.6-1.0) 0.9 mg/dL (0.6-1.0) Estimated GFR (Cockcroft-Gault) 56.0 63.2 BUN/Creatinine Ratio 26 (6-20) 22 (6-20) Glucose Level 122 mg/dL (70-99) 105 mg/dL (70-99) Calcium Level 8.1 mg/dL (8.5-10.1) 8.1 mg/dL (8.5-10.1) Total Bilirubin 0.4 mg/dL (0.2-1.0) 0.4 mg/dL (0.2-1.0) Direct Bilirubin 0.1 mg/dL (0.0-0.2) Aspartate Amino Transf (AST/SGOT) 24 U/L (15-37) 39 U/L (15-37) Alanine Aminotransferase (ALT/SGPT) 41 U/L (14-59) 66 U/L (14-59) Alkaline Phosphatase 78 U/L (46-116) 81 U/L (46-116) Total Protein 5.9 g/dL (6.4-8.2) 6.1 g/dL (6.4-8.2) Albumin 2.9 g/dL (3.4-5.0) 3.0 g/dL (3.4-5.0) Albumin/Globulin Ratio 1.0 (1.0-1.7) 1.0 (1.0-1.7) Triglycerides Level 73 mg/dL (0-150) Cholesterol Level 89 mg/dL (0-200) LDL Cholesterol, Calculated 28 mg/dL (0-100) VLDL Cholesterol, Calculated 15 mg/dL (0-40) Non-HDL Cholesterol Calculated 43 mg/dL (0-129) HDL Cholesterol 46 mg/dL (40-60) Cholesterol/HDL Ratio 1.9 Thyroid Stimulating Hormone (TSH) 0.357 uIU/mL (0.358-3.74) Magnesium Level 1.8 mg/dL (1.8-2.4) Laboratory Tests Test 03/06/20 04:50 White Blood Count 6.7 x10^3/uL (4.0-11.0) Red Blood Count 4.64 x10^6/uL (3.50-5.40) Hemoglobin 14.1 g/dL (12.0-15.5) Hematocrit 42.7 % (36.0-47.0) Mean Corpuscular Volume 92 fL (79-100) Mean Corpuscular Hemoglobin 30 pg (25-35) Mean Corpuscular Hemoglobin Concent 33 g/dL (31-37) Red Cell Distribution Width 13.9 % (11.5-14.5) Platelet Count 147 x10^3/uL (140-400) Neutrophils (%) (Auto) 57 % (31-73) Lymphocytes (%) (Auto) 36 % (24-48) Monocytes (%) (Auto) 6 % (0-9) Eosinophils (%) (Auto) 0 % (0-3) Basophils (%) (Auto) 0 % (0-3) Neutrophils # (Auto) 3.8 x10^3/uL (1.8-7.7) Lymphocytes # (Auto) 2.4 x10^3/uL (1.0-4.8) Monocytes # (Auto) 0.4 x10^3/uL (0.0-1.1) Eosinophils # (Auto) 0.0 x10^3/uL (0.0-0.7) Basophils # (Auto) 0.0 x10^3/uL (0.0-0.2) Sodium Level 144 mmol/L (136-145) Potassium Level 3.8 mmol/L (3.5-5.1) Chloride Level 109 mmol/L (98-107) Carbon Dioxide Level 27 mmol/L (21-32) Anion Gap 8 (6-14) Blood Urea Nitrogen 20 mg/dL (7-20) Creatinine 0.9 mg/dL (0.6-1.0) Estimated GFR (Cockcroft-Gault) 63.2 BUN/Creatinine Ratio 22 (6-20) Glucose Level 105 mg/dL (70-99) Calcium Level 8.1 mg/dL (8.5-10.1) Magnesium Level 1.8 mg/dL (1.8-2.4) Total Bilirubin 0.4 mg/dL (0.2-1.0) Aspartate Amino Transf (AST/SGOT) 39 U/L (15-37) Alanine Aminotransferase (ALT/SGPT) 66 U/L (14-59) Alkaline Phosphatase 81 U/L (46-116) Total Protein 6.1 g/dL (6.4-8.2) Albumin 3.0 g/dL (3.4-5.0) Albumin/Globulin Ratio 1.0 (1.0-1.7) Brief Hospital Course [facility] [address] [place] [address] HISTORY AND PHYSICAL PATIENT: PAKO SCHAFER ACCOUNT: [id number] : 1955 LOC: [address] [place] [address] AGE: 64 SEX: F STATUS: ADM IN LOCATION: [address] [place] [address] ADMIT DATE: 03/03/2020 HISTORY OF PRESENT ILLNESS: This patient is a lynn 64-year-old woman who is a continuity outpatient of Dr. Gao at [facility] who uses the [facility] hospitalist here at [facility]. I am rounding for them this weekend. The patient has had about 2 weeks of sharp respirophasic mid substernal chest pain that initially was accompanied by significant cough without congestion. At baseline, she does have COPD, but that has not given her much trouble through the years. She has a long history of tobacco smoking, but tells me that she quit 2 weeks ago when she fell sick. She was in the Emergency Department here at [facility] about 10 days ago and concern was for COVID-19 at that time. Chest x-ray was unremarkable and the COVID PCR was sent to [facility]. I do not see results reported though presumably negative. The patient tells me that she has been carefully sheltering in place for the last 8 weeks as well as her and they are both retired. They have not been out and about and her children are helping her with the grocery shopping. The patient was given an antibiotic in the ER 10 days ago, which she took and her symptoms persisted. Her mid substernal chest pressure seemed to escalate over the last week and she was quite concerned about this and so presented to the [facility] Emergency Department given that [place] was quite busy when she was here 10 days ago. Because [facility] did not have the ability to consult Cardiology, they transferred her here yesterday evening. I am seeing her now within 24 hours of admission, she says she is feeling a little bit more comfortable. Cardiology has already assessed her and their assistance is appreciated. The patient does have a history of myocardial infarction 4 years ago for which stent was placed. She has not had routine followup with Cardiology, but has been careful about following up with primary care and taking her aspirin. She does tell me that her blood pressure and cholesterol control have been on target. The patient denies any fever, chills, headache, abdominal pain, nausea, vomiting, or change in her bowel habits. All other systems are reviewed and are negative. Patient underwent 3 sets of cardiac enzymes with negative results, she was seen in consultation by cardiology who has recommended following up in the outpatient setting for further work-up if symptoms persist. Patient had this part of her work-up an echocardiogram done with the following results: <Conclusion> The left ventricular systolic function is normal and the ejection fraction is within normal range. The Ejection Fraction is 55-60%. Septal motion consistent with conduction abnormality. Otherwise, grossly normal wall motion. Signed by : Maurice Juan, Electronically Approved : 03/06/2020 09:41:15 Patient continues to be asymptomatic throughout her hospital stay this morning she required Xanax due to anxiety. At the time of my evaluation she was quite sleepy from the effects of the medication. No complaints were voiced during my encounter she was deemed appropriate for discharge from the cardiological standpoint of view and the recommendations from travel consultant are as follow: 1. Chest pain with atypical features in a patient with known history of coronary artery disease s/p PCI/stent placement to RCA in the past. Myocardial infarction has been ruled out. 2D echo showed normal LV systolic function without any wall motion abnormalities. Plan for outpatient ischemic evaluation with Lexiscan nuclear stress test. 2. Headache. Improved. No acute changes on CT scanning. 3. Hypertension. Reasonable control at this time. We will continue present treatments. 4. Hyperlipidemia. Will continue statins. 5. COPD/emphysema with continued tobacco abuse. Assessment Assessment Physical exam: Gen.: well-developed well-nourished in no apparent distress Head: Normal shape atraumatic Neck: Supple no JVD no carotid bruit or lymphadenopathy no thyromegaly Chest: Lungs clear to auscultation with good inspiratory effort no crackles rales or rhonchi Cardiovascular: S1-S2 regular rhythm no murmurs gallops or rubs Discharge Information Condition at Discharge: Improved Follow Up: Weeks (1 week with primary care physician) Disposition/Orders: D/C to Home Scheduled Amitriptyline Hcl (Amitriptyline Hcl) 50 Mg Tablet, 1 TAB PO QHS, #30 Ref 1 (Re ported) Entered as Reported by: DELROY LEE on 02/27/162210 Last Action: Converted on 03/04/2021 by STEPHANY AGUILAR, RN Aspirin (Aspirin Ec) 81 Mg Tablet., [facility] Ref 3 Prescribed by: BRONSON COMER on 02/28/16 152 Last Action: Continued on 03/04/2021 by STEPHANY AGUILAR RN Atorvastatin Calcium (Lipitor) 80 Mg Tablet, 80 MG PO HS for , (Reported) Entered as Reported by: Toni Nixon on 03/04/2013 Last Action: Converted on 03/04/2021 by STEPHANY AGUILAR RN Losartan Potassium (Losartan Potassium) 50 Mg Tablet, 50 MG PO DAILY for HYPERTENSION, (Reported) Entered as Reported by: Toni Nixon on 03/04/2013 Last Action: Continued on 03/04/2021 by STEPHANY AGUILAR RN Metoprolol Tartrate (Metoprolol Tartrate) 25 Mg Tablet, 12.5 MG PO BID, #60 Ref 2 Prescribed by: BRONSON COMER on 02/28/161521 Last Action: Continued on 03/04/2021 by STEPHANY AGUILAR RN Ticagrelor (Brilinta) 60 Mg Tablet, 60 MG PO BID for , (Reported) Entered as Reported by: Toni Nixon on 03/04/2013 Last Action: Converted on 03/04/2021 by STEPHANY AGUILAR RN Scheduled PRN Alprazolam (Xanax) 0.25 Mg Tablet, 0.25 MG PO BID PRN for ANXIETY / AGITATION, Ref 0 (Reported) Entered as Reported by: DELROY LEE on 02/27/162216 Last Action: Continued on 03/04/2021 by STEPHANY AGUILAR RN Discontinued Medications Azithromycin (Zithromax) 250 Mg Tablet, 1 PKG PO UD, #6 Prescribed by: EMORY OH D.O. on 02/25/202223 Last Action: Continued on 03/04/2021 by ASUNCION LAROSE HECTOR M MD March 06, 2020 15:56
--- NOTE | 2020-03-06 18:46 | NUR ---
Discharge Note: PAKO SCHAFER [place] Discharge instructions and discharge home medications reviewed with Patient and a copy given. All questions have been answered and understanding verbalized. Script called into pharmacy.
[2020-03-07 00:11] LABS: HEMOGLOBIN A1C 6.3 % (4.8-5.6)
== END 2020-03-06 18:52 | disposition home or self-care (01) ==
LOC: INTOOBSV 23:36 → 2 NORTH 23:36
PROVIDERS: ADMIT Family Medicine; ATTEND Family Medicine
DX: J43.9 Emphysema, unspecified (principal); R07.89 Other chest pain; I10 Essential (primary) hypertension; E78.5 Hyperlipidemia, unspecified; R51 Headache; I25.2 Old myocardial infarction; F41.9 Anxiety disorder, unspecified; F17.200 Nicotine dependence, unspecified, uncomplicated; F32.9 Major depressive disorder, single episode, unspecified; I25.10 Atherosclerotic heart disease of native coronary artery without angina pectoris; Z95.1 Presence of aortocoronary bypass graft; Z79.899 Other long term (current) drug therapy; Z79.82 Long term (current) use of aspirin; Z90.710 Acquired absence of both cervix and uterus; Z98.891 History of uterine scar from previous surgery
CPT/HCPCS: 36415; 71260; 74177; 80048; 80053; 80061; 82248; 83036; 83735; 84443; 84484; 85025; 93005; 93306; G0378; G0379; Q9966; Q9967

== ENCOUNTER 2021-07-11 22:56 | Observation (INO) | payer MEDICARE, BC ==
[~2021-07-11] VITALS: Ht 152.4 cm; Wt 52.0 kg
[~2021-07-11 22:56] MED LIST changes: -ASPI-612 PO; +ASPI-886 PO; +ATOR80TA PO; +LOSA-73 PO; +TICA60TA PO
[2021-07-11 23:35] LABS: BASO # 0.1 x10^3/uL (0.0-0.2); BASO % 1 % (0-3); EOS # 0.1 x10^3/uL (0.0-0.7); EOS % 1 % (0-3); HEMATOCRIT 46.9 % (36.0-47.0); LYMPH # 2.5 x10^3/uL (1.0-4.8); LYMPH % 45 % (24-48); MEAN CORPUSCULAR HEMOGLOBIN 31 pg (25-35); MEAN CORPUSCULAR HGB CONC 34 g/dL (31-37); MEAN CORPUSCULAR VOLUME 91 fL (79-100); MONO # 0.5 x10^3/uL (0.0-1.1); MONO % 9 % (0-9); NEUT # 2.4 x10^3/uL (1.8-7.7); NEUT % 44 % (31-73); PLATELET COUNT 204 x10^3/uL (140-400); RED BLOOD COUNT 5.14 x10^6/uL (3.50-5.40); RED CELL DISTRIBUTION WIDTH 14.6 % (11.5-14.5); WHITE BLOOD COUNT 5.5 x10^3/uL (4.0-11.0)
--- NOTE | 2021-07-11 23:42 | RAD ---
STUDY: CT head without contrast INDICATION: Slurred speech. Right leg weakness. Code stroke. COMPARISON: 03/03/2020 TECHNIQUE: Axial CT imaging through the head without the use of intravenous contrast. Sagittal and co tee reformats were obtained. One or more of the following individualized dose reduction techniques were utilized for this examinat ion: 1. Automated exposure control 2. Adjustment of the mA and/or kV according to patient size 3. Use of iterative reconstruction technique. FINDINGS: No acute intracranial hemorrhage. Burnett-white matter differentiation is maintained. No localized mass effect, midline shift or hydrocephalus. Intact calvarium. Underpneumatized mastoid air cells on the right. Adequately aerated partially image d paranasal sinuses. The orbits are within normal limits. IMPRESSION: No acute intracranial hemorrhage or CT evidence for an acute cortical infarction. FOR INTERNAL CODING PURPOSES Critical result: Findings unable to be related to Dr. Cifuentes on 07/11/2021 at 11:36 PM. The charge nurse could not be reac hed. The report will be submitted and further attempts will be made. RESULT CODE: (C) Electronically signed by: MARGE VALENCIA MD (07/11/2021 11:40 PM) [facility]
[2021-07-11 23:44] LABS: CALCIUM 9.7 mg/dL (8.5-10.1); CREATININE 1.1 mg/dL (0.6-1.0); GFR 49.8; POTASSIUM 3.7 mmol/L (3.5-5.1)
--- NOTE | 2021-07-11 23:46 | PHYS DOC ---
Past Medical History Past Medical History: Depression, Hypertension, ME, Other Additional Past Medical Histor: STEMI Past Surgical History: Hysterectomy, Other Additional Past Surgical Histo: CARDIAC STENT Smoking Status: Former Smoker Alcohol Use: None Drug Use: Marijuana General Adult EDM: Chief Complaint: MULTIPLE COMPLAINTS HPI: HPI: 66-year-old female past medical history of CAD on plavix, HTN, HLD and COPD/tobacco use, presents the ED with her , (patient consents to his/her/their knowledge and involvement in pts' medical care), concern for brief episode episode of confusion that occurred around 10 PM while patient was sitting in a chair. Episode was observed by patient's daughter who I spoke with over the phone (patient consents to his/her/their knowledge and involvement in pts' medical care). Reports patient acted as if she was intoxicated, was confused and was not getting words out, and that pt put her hand over her chest- symptoms lasted for approximately 5 minutes. Patient reports she has felt weak all day and did smoke medical marijuana from a dispensary, denies any cocaine or alcohol abuse. Patient recalls this episode of confusion and states she felt as if she was going to pass out, was very weak, with some upper bilateral back pain that has since resolved. Patient states she has been having intermittent palp itations and chest pain today, "chest pain is not that bad that I feel short of breath when I have it." Family took her blood pressure at home, systolic is usually in the 160s, sbp was 179. Patient denies any loss of consciousness or head injury. While in the waiting room, triage reported patient was very slow to respond and there was concern a for slurred speech. Code stroke was activated. Glucose was 119. Patient does not recall an increased stress but does state she has more than 5 grandchildren currently living with her due to their father being evicted-asks if she can take her xanax 0.5mg. Review of Systems: Review of Systems: Constitutional: Denies fever or chills. [] Eyes: Denies change in visual acuity. [] HENT: Denies nasal congestion or sore throat. [] Respiratory: Denies cough or hemoptysis Cardiovascular: Denies syncope or edema GI: Denies abdominal pain, nausea, vomiting, bloody stools or diarrhea. [] : Denies incontinence or dysuria Musculoskeletal: Denies cva tenderness or joint pain. [] Integument: Denies rash or diaphoresis Neurologic: Denies headache or neck pain Endocrine: Denies polyuria or polydipsia. [] Lymphatic: Denies swollen glands. [] Psychiatric: Denies depression or anxiety. [] Heart Score: C/O Chest Pain: Yes HEART Score for Chest Pain: HEART Score for Chest Pain Response (Comments) Value History Moderately Suspicious 1 ECG Nonspecific Repolarizatio 1 Age > 65 2 Risk Factors >3 Risk Factors or Hx CAD 2 Troponin < Normal Limit 0 Total 6 Risk Factors: Risk Factors: DM, Current or recent (<one month) smoker, HTN, HLP, family history of CAD, obesity. Risk Scores: Score 0 - 3: 2.5% MACE over next 6 weeks - Discharge Home Score 4 - 6: 20.3% MACE over next 6 weeks - Admit for Clinical Observation Score 7 - 10: 72.7% MACE over next 6 weeks - Early Invasive Strategies Allergies: Allergies: Allergies Coded Allergies Type Severity Reaction Last Updated Verified Penicillins Allergy Intermediate UNKNOWN 03/22/16 Yes Physical Exam: PE: Constitutional: smells of tobacco, hypertensive, HENT: Normocephalic, atraumatic, no teeth Eyes: PERRLA, EOMI, conjunctiva normal, no discharge. Neck: Normal range of motion, supple, Cardiovascular: S1/2 present, regular rhythm Lungs & Thorax: Speaking in full sentences, bilateral equal chest rise, no tachypnea or increased work of breathing Abdomen: soft, no tenderness, Skin: Warm, dry, no erythema, no rash. [] Back: No midline tenderness, no CVA tenderness. [] Extremities: No tenderness, no cyanosis, no lower extremity edema Neurologic: NIHSS2 (speech, right leg drift), Alert and oriented X 3, steady Psychologic: Affect normal, judgement normal, mood normal. [] Current Patient Data: Labs: Laboratory Tests Test 07/11/21 23:23 07/11/21 23:25 Glucose (Fingerstick) 119 mg/dL (70-99) H White Blood Count 5.5 x10^3/uL (4.0-11.0) Red Blood Count 5.14 x10^6/uL (3.50-5.40) Hemoglobin 16.0 g/dL (12.0-15.5) H Hematocrit 46.9 % (36.0-47.0) Mean Corpuscular Volume 91 fL (79-100) Mean Corpuscular Hemoglobin 31 pg (25-35) Mean Corpuscular Hemoglobin Concent 34 g/dL (31-37) Red Cell Distribution Width 14.6 % (11.5-14.5) H Platelet Count 204 x10^3/uL (140-400) Neutrophils (%) (Auto) 44 % (31-73) Lymphocytes (%) (Auto) 45 % (24-48) Monocytes (%) (Auto) 9 % (0-9) Eosinophils (%) (Auto) 1 % (0-3) Basophils (%) (Auto) 1 % (0-3) Neutrophils # (Auto) 2.4 x10^3/uL (1.8-7.7) Lymphocytes # (Auto) 2.5 x10^3/uL (1.0-4.8) Monocytes # (Auto) 0.5 x10^3/uL (0.0-1.1) Eosinophils # (Auto) 0.1 x10^3/uL (0.0-0.7) Basophils # (Auto) 0.1 x10^3/uL (0.0-0.2) Sodium Level 145 mmol/L (136-145) Potassium Level 3.7 mmol/L (3.5-5.1) Chloride Level 107 mmol/L (98-107) Carbon Dioxide Level 31 mmol/L (21-32) Anion Gap 7 (6-14) Blood Urea Nitrogen 13 mg/dL (7-20) Creatinine 1.1 mg/dL (0.6-1.0) H Estimated GFR (Cockcroft-Gault) 49.8 Glucose Level 121 mg/dL (70-99) H Calcium Level 9.7 mg/dL (8.5-10.1) Laboratory Tests 07/11/21 23:25 Laboratory Tests 07/11/21 23:25 EKG: EKG: Sinus bradycardia 52 bpm, no axis deviation, T wave inversion aVL, no ST elevation or ST depression Repeat EKG sinus rhythm 60 bpm, no axis deviation, normal intervals, T wave inversion V2, no ST elevations or ST depressions Radiology/Procedures: Radiology/Procedures: []IMAGING REPORT Signed PATIENT: PAKO SCHAFER ACCOUNT: [id number] : 1955 LOCATION: ER AGE: 66 SEX: F EXAM STATUS: REG ER ORD. PHYSICIAN: MAX JAFFE DO REASON: slurred speech, right leg weakness PROCEDURE: CT CODE STROKE HEAD WO STUDY: CT head without contrast INDICATION: Slurred speech. Right leg weakness. Code stroke. COMPARISON: 03/03/2020 TECHNIQUE: Axial CT imaging through the head without the use of intravenous contrast. Sagittal and coronal reformats were obtained. One or more of the following individualized dose reduction techniques were utilized for this examination: 1. Automated exposure control 2. Adjustment of the mA and/or kV according to patient size 3. Use of iterative reconstruction technique. FINDINGS: No acute intracranial hemorrhage. Burnett-white matter differentiation is maintained. No localized mass effect, midline shift or hydrocephalus. Intact calvarium. Underpneumatized mastoid air cells on the right. Adequately aerated partially imaged paranasal sinuses. The orbits are within normal limits. IMPRESSION: No acute intracranial hemorrhage or CT evidence for an acute cortical infarction. FOR INTERNAL CODING PURPOSES Critical result: Findings unable to be related to Dr. Jaffe on 07/11/2021 at 11:36 PM. The charge nurse could not be reached. The report will be submitted and further attempts will be made. RESULT CODE: (C) Electronically signed by: MARGE VALENCIA MD (07/11/2021 11:40 PM) [facility] DICTATED and SIGNED BY: MARGE VALENCIA MD DATE: 07/11/21 [id number] 0 secretary board of commissioners informed me there was an incoming call that she was hung up on. I spoke to radiologist regarding CT head findings around 11:45pm IMAGING REPORT Signed PATIENT: PAKO SCHAFER ACCOUNT: [id number] : 1955 LOCATION: ER AGE: 66 SEX: F EXAM STATUS: REG ER ORD. PHYSICIAN: MAX JAFFE DO REASON: cp, palpitations, near syncope, r/o dissection;OMNI 350, 75ML PROCEDURE: CT ANGIOGRAPHY CHEST CT angiogram of the chest with contrast: Reason for examination: Chest pain and palpitation with near syncope. Evaluate f or dissection. Helical images were obtained through the chest with intravenous administration of 75 cc Omnipaque 350. Reconstruction was performed in sagittal and coronal planes. Exposure: One or more of the following individualized dose reduction techniques were utilized for this examination: 1. Automated exposure control 2. Adjustment of the mA and/or kV according to patient size 3. Use of iterative reconstruction technique. No abnormality seen at the thyroid gland. The trachea and mainstem bronchi show no intraluminal lesions. No abnormality seen at the esophagus. There is a small hiatal hernia. The thoracic aorta shows no aneurysmal dilatation or dissection. There is some mild arteriosclerotic vascular calcification. The heart size is normal with no pericardial effusion. There is no evidence of pulmonary embolus. There are calcified granuloma posterior medially in the superior segment of the left lower lobe. There are also however some patchy infiltrates posterior medially in the right lower lobe with some mild infiltrates posterior medially in laterally in the left lung base. Some minimal bullous changes are seen at the left apex. No pleural effusions are seen. No abnormality seen at the visualized portion of the liver, spleen, adrenal glands, pancreas or gallbladder. The visualized portions of the kidneys show no gross renal masses. No acute bony abnormalities are seen. IMPRESSION: Small hiatal hernia. No evidence of aortic aneurysm or dissection. No pulmonary embolus. Patchy parenchymal infiltrates in the lower lobes bilaterally. Electronically signed by: Duran Waddell MD (07/12/2021 2:40 AM) [facility] DICTATED and SIGNED BY: DURAN WADDELL MD DATE: 07/12/21 [id number] 0 Course & Med Decision Making: Course & Med Decision Making Pertinent Labs and Imaging studies reviewed. (See chart for details) Patient reevaluated multiple times on initial presentation. NIHSS went from 2 to 0. I reviewed patient's presentation with Dr. Steiner, neurology, who agrees pt is not a tPA candidate. While in ed pt c/o chest pain and dyspnea while walking to the bathroom. I spoke with Ofe, field technical support consultant regarding concern for near-syncope, chest and back pain in the setting of hypertension, to d/w radiology low contrast bolus to evaluate for aortic dissection. Pt with expiratory wheezing bilaterally. CTA shows bl infiltrates. Patient will be covered for community acquired pneumonia, and copd exacerbation, Covid test sent. Nicardipine drip was started and stopped due to resolution of HTN. Lasix was not given. I highly suspect pt was having a hypertensive emergency that improved in the ed although ddx includes tia, syncope, and atypical chest pain. Will admit for further medical management. Patient stable time of admission and agrees with this plan. I have spoken with the patient and/or caregivers. I have explained the patient's condition, diagnosis and treatment plan based on the information available to me at this time. I have answered the patient's and/or caregivers questions and answered any concerns. The patient and/or caregivers have as good an understanding of the patient's diagnosis, condition and treatment plan as can be expected at this point. The patient has been stabilized within the capability of the emergency department. The patient will be transported for further care and management or will be moved to an observation or inpatient service. I have communicated with the staff or medical practitioner taking over this patient's care. Danae Disclaimer: Danae Disclaimer: This electronic medical record was generated, in whole or in part, using a voice recognition dictation system. Departure Departure Impression: Primary Impression: Confusion Additional Impressions: Syncope, near Chest pain Uncontrolled hypertension Disposition: ADMITTED INPATIENT Admitting Physician: GENNA (Dr. Hanson) Condition: GUARDED Referrals: BRITTANEY ANGELO (PCP) MAX JAFFE DO Jul 11, 2021 23:45
[2021-07-11 23:48] LABS: PROTHROMBIN TIME PATIENT 11.9 SEC (11.7-14.0)
[2021-07-12 00:13] LABS: BILIRUBIN,URINE NEGATIVE (NEG); CLARITY,URINE CLEAR; COLOR,URINE YELLOW; NITRITE,URINE NEGATIVE (NEG); PH,URINE 6.5 (<5.0-8.0); PROTEIN,URINE NEGATIVE (NEG-TRACE); UROBILINOGEN,URINE 0.2 mg/dL (0.2 mg/dL)
[2021-07-12] MEDS ORDERED: CONTRAST GIVEN. MC PRN (00:15)
[2021-07-12 00:19] LABS: BACTERIA,URINE FEW /HPF (0-FEW)
--- NOTE | 2021-07-12 00:21 | RAD ---
CT angiogram of the head and neck with contrast: Reason for examination: Slurred speech and right leg weakness. Helical images were obtained through the head and neck with intravenous administration of 74 cc Isovu e-370 using angiographic protocol. 3-D MIPS reconstruction was performed in sagittal and coronal plan es and volume rendered images were obtained. The intracranial carotid arteries are patent with no stenosis or evidence of occlusion. There is norm al bifurcation of the intracranial carotid arteries into their respective anterior and middle cerebra l arteries with no stenosis or occlusions evident. The intracranial vertebral arteries and basilar ar heber are patent with no stenosis or occlusion. There is normal blood flow in the superior cerebellar and posterior cerebral arteries. No aneurysms or arteriovenous malformations are seen. The dural sinu ses and cerebral veins appear to be patent. The aortic arch shows no aneurysmal dilatation or dissection. There is normal origin of the right bra chiocephalic artery, left common carotid artery and left subclavian artery from the arch. The vertebr al arteries arise from their respective subclavian arteries and show no stenoses to the basilar arter y. The carotid arterial systems bilaterally are patent but there is some calcified plaque bilaterally at the carotid bulbs and at the origin of the internal carotid arteries with moderate stenosis at th e origin of the right internal carotid artery. Jugular veins are patent. No abnormality seen at the thyroid gland. The trachea and visualized portion of the esophagus shows n o abnormality. Vocal cords are symmetric. Vallecula and piriform sinuses show no abnormalities. No ab normality seen at the epiglottis. No abnormalities of seen at the parotid or submandibular glands. Th e vertebral bodies of the cervical spine are normally aligned anteriorly and posteriorly but there ar e degenerative changes in the spine from C5 through T1. Prevertebral soft tissues are normal. IMPRESSION: Calcific plaque at the carotid bulbs and extending into the internal carotid arteries with moderate s tenosis of the right internal carotid artery. No other acute vascular abnormality seen in the head or neck. FOR INTERNAL CODING PURPOSES Critical result: Findings discussed with Steffany Cifuentes at 07/12/2021 12:16 AM. RESULT CODE: (C) Electronically signed by: Crystal Villarreal MD (07/12/2021 12:19 AM) JV
[2021-07-12] MEDS ORDERED: METOPROLOL IV PUSH 5 MG/5 ML VIAL. IVP ONE (00:30)
[2021-07-12] MEDS ORDERED: IOHEXOL 300 MG/ML 100ML VIAL. IV ONE (00:30)
[2021-07-12 00:38] LABS: AMPHETAMINE/METHAMPHETAMINE NEG (NEG); BARBITURATES NEG (NEG); BENZODIAZEPINES POS (NEG); CANNABINOIDS POS (NEG); COCAINE NEG (NEG); METHADONE NEG (NEG); OPIATES NEG (NEG); PHENCYCLIDINE NEG (NEG)
--- NOTE | 2021-07-12 01:35 | RAD ---
Chest AP portable at 2334: Reason for examination: Slurred speech. Near syncope. The heart size is normal. Mediastinum is unremarkable. Lung ferguson are clear. No acute bony abnormali ties are seen. Impression: No acute cardiopulmonary disease. Electronically signed by: Crystal Villarreal MD (07/12/2021 1:33 AM) JV
[2021-07-12] MEDS ORDERED: IV NORMAL SALINE 1000ML BAG 1,000 ML IV ONE (02:00)
--- NOTE | 2021-07-12 02:42 | RAD ---
CT angiogram of the chest with contrast: Reason for examination: Chest pain and palpitation with near syncope. Evaluate for dissection. Helical images were obtained through the chest with intravenous administration of 75 cc Omnipaque 350 . Reconstruction was performed in sagittal and coronal planes. Exposure: One or more of the following individualized dose reduction techniques were utilized for thi s examination: 1. Automated exposure control 2. Adjustment of the mA and/or kV according to patient size 3. Use of iterative reconstruction technique. No abnormality seen at the thyroid gland. The trachea and mainstem bronchi show no intraluminal lesio ns. No abnormality seen at the esophagus. There is a small hiatal hernia. The thoracic aorta shows no aneurysmal dilatation or dissection. There is some mild arteriosclerotic vascular calcification. The heart size is normal with no pericardial effusion. There is no evidence of pulmonary embolus. There are calcified granuloma posterior medially in the superior segment of the left lower lobe. There are also however some patchy infiltrates posterior medially in the right lower lobe with some mild infilt rates posterior medially in laterally in the left lung base. Some minimal bullous changes are seen at the left apex. No pleural effusions are seen. No abnormality seen at the visualized portion of the liver, spleen, adrenal glands, pancreas or gallb ladder. The visualized portions of the kidneys show no gross renal masses. No acute bony abnormalitie s are seen. IMPRESSION: Small hiatal hernia. No evidence of aortic aneurysm or dissection. No pulmonary embolus. Patchy parenchymal infiltrates in the lower lobes bilaterally. Electronically signed by: Crystal Villarreal MD (07/12/2021 2:40 AM) JV
[2021-07-12] MEDS ORDERED: hydrALAZINE 20 MG/ML VIAL. IVP ONE (03:00)
[2021-07-12] MEDS ORDERED: cefTRIAXone IV Push 1 GM VIAL. IVP ONE (04:00)
[2021-07-12] MEDS ORDERED: DEXAMETHASONE SOD PHOS 20 MG/5 ML VIAL. IV ONE (04:00)
[2021-07-12] MEDS ORDERED: AZITHRMYCN 500MG IVPB FOR OMNI 250 ML IV ONE (04:00)
--- NOTE | 2021-07-12 04:21 | EKG ---
[facility] [address] [place] [address] Test Date: 2021-07-12 Test Time: 03:38:37 Pat Name: PAKO SCHAFER Department: Room: 4 Gender: F Chamber Walker: : 1955 Requested By: MAX JAFFE Order Number: [id number] Reading MD: Maurice Juan MD Measurements Intervals [place] Rate: 60 P: 28 CO: 138 QRS: 28 QRSD: 94 T: 26 QT: 414 QTc: 418 Interpretive Statements SINUS RHYTHM Electronically Signed On 07-12-2021 8:49:32 CDT by Maurice Juan MD
[2021-07-12] MEDS ORDERED: FUROSEMIDE 40 MG/4 ML VIAL. IVP ONE (04:30)
[2021-07-12] MEDS ORDERED: ONDANSETRON PF 4 MG/2 ML VIAL. IVP ONE (04:30)
[2021-07-12] MEDS ORDERED: IPRATRPIUM/ALBUTEROL 0.5/2.5MG 3 ML NEBU. NEB ONE (04:30)
[2021-07-12] MEDS ORDERED: IOHEXOL 350 MG/ML 100 ML VIAL. IV ONE (04:30)
[2021-07-12 04:50] VITALS: BP 148/90
[2021-07-12] MEDS ORDERED: CLOP75TA PO (05:13)
[2021-07-12] MEDS ORDERED: AMIT25TA PO (05:13)
[2021-07-12 06:46] VITALS: BP 111/61
--- NOTE | 2021-07-12 08:39 | PDOC1 ---
History and Physical Date of Service: DOS: DATE: 07/12/21 TIME: 08:32 Chief Complaint: Chief Complain: Confusion chest pain History of Present Illness: HPI: History obtained from discussion with the ED physician and chart review 66-year-old female past medical history of CAD on plavix, HTN, HLD and COPD/tobacco use, presents the ED with her , (patient consents to his/her/their knowledge and involvement in pts' medical care), concern for brief episode of confusion that occurred around 10 PM while patient was sitting in a chair. Episode was observed by patient's daughter who I spoke with over the phone (patient consents to his/her/their knowledge and involvement in pts' medical care). Reports patient acted as if she was intoxicated, was confused and was not getting words out, and that pt put her hand over her chest- symptoms lasted for approximately 5 minutes. Patient reports she has felt weak all day and did smoke medical marijuana from a dispensary, denies any cocaine or alcohol abuse. Patient recalls this episode of confusion and states she felt as if she was going to pass out, was very weak, with some upper bilateral back pain that has since resolved. Patient states she has been having intermittent palpitations and chest pain today, "chest pain is not that bad that I feel short of breath when I have it." Family took her blood pressure at home, systolic is usually in the 160s, sbp was 179. Patient denies any loss of consciousness or head injury. While in the waiting room, triage reported patient was very slow t o respond and there was concern a for slurred speech. Code stroke was activated. Glucose was 119. Patient does not recall an increased stress but does state she has more than 5 grandchildren currently living with her due to their father being evicted-asks if she can take her xanax 0.5mg. Past Medical/Surgical History: PMH/PSH: Past Medical History: Depression, Hypertension, STEMI Past Surgical History: Hysterectomy, CARDIAC STENT Allergies: Allergies: Coded Allergies: Penicillins (Verified Allergy, Intermediate, 07/12/21) Family History: Family History: Lung cancer in the mother, diabetes and heart disease in the father Social History: Social History: Smoking Status: Former Smoker Alcohol Use: None Drug Use: Marijuana Current Medications: Current Medications Current Medications Iohexol (Omnipaque 300 Mg/ml) 75 ml 1X ONCE IV Last administered on 07/12/21at 02:10; Start 07/12/21 at 00:30; Stop 07/12/21 at 00:31; Status DC Info (CONTRAST GIVEN -- Rx MONITORING) 1 each PRN DAILY PRN MC SEE COMMENTS; Start 07/12/21 at 00:15; Stop 07/14/21 at 00:14 Metoprolol Tartrate (Lopressor Vial) 5 mg 1X ONCE IVP Last administered on 07/12/21at 00:53; Start 07/12/21 at 00:30; Stop 07/12/21 at 00:31; Status DC Sodium Chloride 1,000 ml @ 1,000 mls/hr 1X ONCE IV Last administered on 07/12/21at 02:22; Start 07/12/21 at 02:00; Stop 07/12/21 at 02:59; Status DC Hydralazine HCl (Apresoline Inj) 10 mg 1X ONCE IVP Last administered on 07/12/21at 03:03; Start 07/12/21 at 03:00; Stop 07/12/21 at 03:01; Status DC Nicardipine HCl 50 mg/Sodium Chloride 250 ml @ 25 mls/hr CONT PRN IV SEE I/O RECORD Last administered on 07/12/21at 04:05; Start 07/12/21 at 03:45 Dexamethasone Sodium Phosphate (Decadron) 10 mg 1X ONCE IV Last administered on 07/12/21at 03:58; Start 07/12/21 at 04:00; Stop 07/12/21 at 04:01; Status DC Ceftriaxone Sodium (Rocephin) 1 gm 1X ONCE IVP Last administered on 07/12/21at 04:05; Start 07/12/21 at 04:00; Stop 07/12/21 at 04:01; Status DC Azithromycin 250 ml @ 250 mls/hr 1X ONCE IV Last administered on 07/12/21at 04:12; Start 07/12/21 at 04:00; Stop 07/12/21 at 04:59; Status DC Iohexol (Omnipaque 350 Mg/ml) 75 ml 1X ONCE IV Last administered on 07/12/21at 04:18; Start 07/12/21 at 04:30; Stop 07/12/21 at 04:31; Status DC Ondansetron HCl (Zofran) 8 mg 1X ONCE IVP Last administered on 07/12/21at 04:20; Start 07/12/21 at 04:30; Stop 07/12/21 at 04:31; Status DC Albuterol/ Ipratropium (Duoneb) 9 ml 1X ONCE NEB Last administered on 07/12/21at 04:30; Start 07/12/21 at 04:30; Stop 07/12/21 at 04:31; Status DC Furosemide (Lasix) 40 mg 1X ONCE IVP ; Start 07/12/21 at 04:30; Stop 07/12/21 at 04:31; Status DC Active Scripts Active Metoprolol Tartrate 25 Mg Tablet 12.5 Mg PO BID Aspirin Ec (Aspirin) 81 Mg Tablet. 81 Mg PO [id number] Reported Clopidogrel (Clopidogrel Bisulfate) 75 Mg Tablet 75 Mg PO DAILY Amitriptyline Hcl 25 Mg Tablet 1 Tab PO QHS Lipitor (Atorvastatin Calcium) 80 Mg Tablet 80 Mg PO HS Losartan Potassium 50 Mg Tablet 50 Mg PO DAILY Xanax (Alprazolam) 0.25 Mg Tablet 0.25 Mg PO BID PRN ROS: Review of Systems Review of System CONSTITUTIONAL: No fever or chills EYES: No recent changes SKIN: No rash or itching CARDIOVASCULAR: No chest pain, syncope, palpitations, or edema RESPIRATORY: No SOB or cough GASTROINTESTINAL: No nausea, vomiting or abdominal pain NEUROLOGICAL: No headaches or weakness ENDOCRINE: No cold or heat intolerance GENITOURINARY: No urgency or frequency of urination MUSCULOSKELETAL: No back pain or joint pain LYMPHATICS: No enlarged lymph nodes PSYCHIATRIC: No anxiety or depression Physical Exam: Vital Signs: Vital Signs Date Time Temp Pulse Resp B/P (MAP) Pulse Ox O2 Delivery O2 Flow Rate FiO2 07/12/21 08:00 Nasal Cannula 1.5 07/12/21 06:46 58 18 111/61 (78) 97 07/12/21 04:50 98.3 98.3 Physcial Exam: General: Well developed, well nourished, no acute distress, well appearing HEENT: Pupils equally round and reactive to light, EOMI, no discharge, normal conjunctiva Neck: Supple, no nuchal rigidity, no JVD, trachea midline, no tenderness Cardiac: RRR, no murmurs, no gallops, no rubs Chest/Lungs: CTAB, no wheeze, no rhonchi, no crackles Abdomen: soft, non-distended, no guarding, no peritoneal signs, non-tender Back: No tenderness Extremities: no edema, pulses intact, non-tender,capillary refill <3 sec bilateral upper and lower extremities, Neuro: Alert and oriented x 4, no focal deficits, normal speech Labs: Labs: Laboratory Tests Test 07/11/21 23:23 07/11/21 23:25 07/11/21 23:55 07/12/21 00:10 Glucose (Fingerstick) 119 mg/dL (70-99) White Blood Count 5.5 x10^3/uL (4.0-11.0) Red Blood Count 5.14 x10^6/uL (3.50-5.40) Hemoglobin 16.0 g/dL (12.0-15.5) Hematocrit 46.9 % (36.0-47.0) Mean Corpuscular Volume 91 fL (79-100) Mean Corpuscular Hemoglobin 31 pg (25-35) Mean Corpuscular Hemoglobin Concent 34 g/dL (31-37) Red Cell Distribution Width 14.6 % (11.5-14.5) Platelet Count 204 x10^3/uL (140-400) Neutrophils (%) (Auto) 44 % (31-73) Lymphocytes (%) (Auto) 45 % (24-48) Monocytes (%) (Auto) 9 % (0-9) Eosinophils (%) (Auto) 1 % (0-3) Basophils (%) (Auto) 1 % (0-3) Neutrophils # (Auto) 2.4 x10^3/uL (1.8-7.7) Lymphocytes # (Auto) 2.5 x10^3/uL (1.0-4.8) Monocytes # (Auto) 0.5 x10^3/uL (0.0-1.1) Eosinophils # (Auto) 0.1 x10^3/uL (0.0-0.7) Basophils # (Auto) 0.1 x10^3/uL (0.0-0.2) Prothrombin Time 11.9 SEC (11.7-14.0) Prothromb Time International Ratio 0.9 (0.8-1.1) Activated Partial Thromboplast Time 30 SEC (24-38) D-Dimer (Ann) 2.28 ug/mlFEU (0.00-0.50) Sodium Level 145 mmol/L (136-145) Potassium Level 3.7 mmol/L (3.5-5.1) Chloride Level 107 mmol/L (98-107) Carbon Dioxide Level 31 mmol/L (21-32) Anion Gap 7 (6-14) Blood Urea Nitrogen 13 mg/dL (7-20) Creatinine 1.1 mg/dL (0.6-1.0) Estimated GFR (Cockcroft-Gault) 49.8 Glucose Level 121 mg/dL (70-99) Calcium Level 9.7 mg/dL (8.5-10.1) Troponin I Quantitative < 0.017 ng/mL (0.000-0.055) HD-Cfp-G-Type Natriuretic Peptide 559 pg/mL (0-124) Urine Collection Type Unknown Urine Color Yellow Urine Clarity Clear Urine pH 6.5 (<5.0-8.0) Urine Specific [place] 1.015 (1.000-1.030) Urine Protein Negative mg/dL (NEG-TRACE) Urine Glucose (UA) Negative mg/dL (NEG) Urine Ketones (Stick) Negative mg/dL (NEG) Urine Blood Negative (NEG) Urine Nitrite Negative (NEG) Urine Bilirubin Negative (NEG) Urine Urobilinogen Dipstick 0.2 mg/dL (0.2 mg/dL) Urine Leukocyte Esterase Negative (NEG) Urine RBC 1-2 /HPF (0-2) Urine WBC 1-4 /HPF (0-4) Urine Squamous Epithelial Cells Mod /LPF Urine Bacteria Few /HPF (0-FEW) Urine Mucus Slight /LPF Urine Opiates Screen Neg (NEG) Urine Methadone Screen Neg (NEG) Urine Barbiturates Neg (NEG) Urine Phencyclidine Screen Neg (NEG) Urine Amphetamine/Methamphetamine Neg (NEG) Urine Benzodiazepines Screen Pos (NEG) Urine Cocaine Screen Neg (NEG) Urine Cannabinoids Screen Pos (NEG) Urine Ethyl Alcohol Neg (NEG) Test 07/12/21 03:35 07/12/21 04:05 SARS-CoV-2 Antigen (Rapid) Negative (NEGATIVE) Troponin I Quantitative 0.020 ng/mL (0.000-0.055) Laboratory Tests Test 07/11/21 23:23 07/11/21 23:25 07/11/21 23:55 07/12/21 00:10 Glucose (Fingerstick) 119 mg/dL (70-99) White Blood Count 5.5 x10^3/uL (4.0-11.0) Red Blood Count 5.14 x10^6/uL (3.50-5.40) Hemoglobin 16.0 g/dL (12.0-15.5) Hematocrit 46.9 % (36.0-47.0) Mean Corpuscular Volume 91 fL (79-100) Mean Corpuscular Hemoglobin 31 pg (25-35) Mean Corpuscular Hemoglobin Concent 34 g/dL (31-37) Red Cell Distribution Width 14.6 % (11.5-14.5) Platelet Count 204 x10^3/uL (140-400) Neutrophils (%) (Auto) 44 % (31-73) Lymphocytes (%) (Auto) 45 % (24-48) Monocytes (%) (Auto) 9 % (0-9) Eosinophils (%) (Auto) 1 % (0-3) Basophils (%) (Auto) 1 % (0-3) Neutrophils # (Auto) 2.4 x10^3/uL (1.8-7.7) Lymphocytes # (Auto) 2.5 x10^3/uL (1.0-4.8) Monocytes # (Auto) 0.5 x10^3/uL (0.0-1.1) Eosinophils # (Auto) 0.1 x10^3/uL (0.0-0.7) Basophils # (Auto) 0.1 x10^3/uL (0.0-0.2) Prothrombin Time 11.9 SEC (11.7-14.0) Prothromb Time International Ratio 0.9 (0.8-1.1) Activated Partial Thromboplast Time 30 SEC (24-38) D-Dimer (Ann) 2.28 ug/mlFEU (0.00-0.50) Sodium Level 145 mmol/L (136-145) Potassium Level 3.7 mmol/L (3.5-5.1) Chloride Level 107 mmol/L (98-107) Carbon Dioxide Level 31 mmol/L (21-32) Anion Gap 7 (6-14) Blood Urea Nitrogen 13 mg/dL (7-20) Creatinine 1.1 mg/dL (0.6-1.0) Estimated GFR (Cockcroft-Gault) 49.8 Glucose Level 121 mg/dL (70-99) Calcium Level 9.7 mg/dL (8.5-10.1) Troponin I Quantitative < 0.017 ng/mL (0.000-0.055) DG-Srn-Q-Type Natriuretic Peptide 559 pg/mL (0-124) Urine Collection Type Unknown Urine Color Yellow Urine Clarity Clear Urine pH 6.5 (<5.0-8.0) Urine Specific [place] 1.015 (1.000-1.030) Urine Protein Negative mg/dL (NEG-TRACE) Urine Glucose (UA) Negative mg/dL (NEG) Urine Ketones (Stick) Negative mg/dL (NEG) Urine Blood Negative (NEG) Urine Nitrite Negative (NEG) Urine Bilirubin Negative (NEG) Urine Urobilinogen Dipstick 0.2 mg/dL (0.2 mg/dL) Urine Leukocyte Esterase Negative (NEG) Urine RBC 1-2 /HPF (0-2) Urine WBC 1-4 /HPF (0-4) Urine Squamous Epithelial Cells Mod /LPF Urine Bacteria Few /HPF (0-FEW) Urine Mucus Slight /LPF Urine Opiates Screen Neg (NEG) Urine Methadone Screen Neg (NEG) Urine Barbiturates Neg (NEG) Urine Phencyclidine Screen Neg (NEG) Urine Amphetamine/Methamphetamine Neg (NEG) Urine Benzodiazepines Screen Pos (NEG) Urine Cocaine Screen Neg (NEG) Urine Cannabinoids Screen Pos (NEG) Urine Ethyl Alcohol Neg (NEG) Test 07/12/21 03:35 07/12/21 04:05 SARS-CoV-2 Antigen (Rapid) Negative (NEGATIVE) Troponin I Quantitative 0.020 ng/mL (0.000-0.055) Images: Images PROCEDURE: PORTABLE CHEST 1V Chest AP portable at 2334: Reason for examination: Slurred speech. Near syncope. The heart size is normal. Mediastinum is unremarkable. Lung ferguson are clear. No acute bony abnormalities are seen. Impression: No acute cardiopulmonary disease. PROCEDURE: CT CODE STROKE HEAD WO STUDY: CT head without contrast INDICATION: Slurred speech. Right leg weakness. Code stroke. COMPARISON: 03/03/2020 TECHNIQUE: Axial CT imaging through the head without the use of intravenous contrast. Sagittal and coronal reformats were obtained. One or more of the following individualized dose reduction techniques were utilized for this examination: 1. Automated exposure control 2. Adjustment of the mA and/or kV according to patient size 3. Use of iterative reconstruction technique. FINDINGS: No acute intracranial hemorrhage. Burnett-white matter differentiation is maintained. No localized mass effect, midline shift or hydrocephalus. PROCEDURE: CT ANGIOGRAPHY HEAD AND NECK CT angiogram of the head and neck with contrast: Reason for examination: Slurred speech and right leg weakness. Helical images were obtained through the head and neck with intravenous administration of 74 cc [id number]-370 using angiographic protocol. 3-D MIPS reconstruction was performed in sagittal and coronal planes and volume rendered images were obtained. The intracranial carotid arteries are patent with no stenosis or evidence of occlusion. There is normal bifurcation of the intracranial carotid arteries into their respective anterior and middle cerebral arteries with no stenosis or occlusions evident. The intracranial vertebral arteries and basilar artery are patent with no stenosis or occlusion. There is normal blood flow in the superior cerebellar and posterior cerebral arteries. No aneurysms or arteriovenous malformations are seen. The dural sinuses and cerebral veins appear to be patent. The aortic arch shows no aneurysmal dilatation or dissection. There is normal origin of the right brachiocephalic artery, left common carotid artery and left subclavian artery from the arch. The vertebral arteries arise from their respective subclavian arteries and show no stenoses to the basilar artery. The carotid arterial systems bilaterally are patent but there is some calcified plaque bilaterally at the carotid bulbs and at the origin of the internal carotid arteries with moderate stenosis at the origin of the right internal carotid artery. Jugular veins are patent. No abnormality seen at the thyroid gland. The trachea and visualized portion of the esophagus shows no abnormality. Vocal cords are symmetric. Vallecula and piriform sinuses show no abnormalities. No abnormality seen at the epiglottis. No abnormalities of seen at the parotid or submandibular glands. The vertebral bodies of the cervical spine are normally aligned anteriorly and posteriorly but there are degenerative changes in the spine from C5 through T1. Prevertebral soft tissues are normal. IMPRESSION: Calcific plaque at the carotid bulbs and extending into the internal carotid arteries with moderate stenosis of the right internal carotid artery. No other acute vascular abnormality seen in the head or neck. PROCEDURE: CT ANGIOGRAPHY CHEST CT angiogram of the chest with contrast: Reason for examination: Chest pain and palpitation with near syncope. Evaluate for dissection. Helical images were obtained through the chest with intravenous administration of 75 cc Omnipaque 350. Reconstruction was performed in sagittal and coronal planes. Exposure: One or more of the following individualized dose reduction techniques were utilized for this examination: 1. Automated exposure control 2. Adjustment of the mA and/or kV according to patient size 3. Use of iterative reconstruction technique. No abnormality seen at the thyroid gland. The trachea and mainstem bronchi show no intraluminal lesions. No abnormality seen at the esophagus. There is a small hiatal hernia. The thoracic aorta shows no aneurysmal dilatation or dissection. There is some mild arteriosclerotic vascular calcification. The heart size is normal with no pericardial effusion. There is no evidence of pulmonary embolus. There are calcified granuloma posterior medially in the superior segment of the left lower lobe. There are also however some patchy infiltrates posterior medially in the right lower lobe with some mild infiltrates posterior medially in laterally in the left lung base. Some minimal bullous changes are seen at the left apex. No pleural effusions are seen. No abnormality seen at the visualized portion of the liver, spleen, adrenal glands, pancreas or gallbladder. The visualized portions of the kidneys show no gross renal masses. No acute bony abnormalities are seen. IMPRESSION: Small hiatal hernia. No evidence of aortic aneurysm or dissection. No pulmonary embolus. Patchy parenchymal infiltrates in the lower lobes bilaterally. Assessment/Plan Assessment/Plan Acute hypertensive encephalopathy Hypertensive urgency Cannabinoid positivity History of CAD with stents History of STEMI Admit to hospitalist service for further management Neuro consult Cardiology consult Speech evaluation Resume home antihypertensive medications Resume home antiplatelet therapy for history of CAD with stents Lovenox for DVT prophylaxis ADA diet Full code Discussed with RN and SW Dispo pending cardioloy evaluation, okay for discharge once signed off from specialty services In addition to my E/M visit, advance care planning done with A total time of 20 minutes was spent from 930 to 950 face to face in discussion with the patient and family regarding their goals of care, CODE STATUS. Smoking cessation: Total time spent was 12 minutes in face to face counseling. Patient has agreed to consider nicotine patches/gum or to start on Varnicline when discharged Justifications for Admission Other Justification ROXANN TERRELL MD Jul 12, 2021 08:38
[2021-07-12 11:16] VITALS: BP 143/80
--- NOTE | 2021-07-12 11:40 | PDOC2 ---
DARIELA DUARTE CELERY STRIPPER 07/12/21 1140: CARDIAC CONSULT DATE OF CONSULT Date of Consult DATE: 07/12/21 TIME: 11:34 REASON FOR CONSULT Reason for Consult: Chest pain REFERRING PHYSICIAN Referring Physician: Dr. Cifuentes SOURCE Source: Chart review, Patient HISTORY OF PRESENT ILLNESS HISTORY OF PRESENT ILLNESS This is a 66 yo female who presented secondary to altered mental status and chest pain. Patient reports experiencing intermittent stabbing pain in her left chest for the last several months. Yesterday evening, was at home sitting in her chair and began having difficulty getting speech out. Reports she was "out of it". Family reported she acted as if she were intoxicated. Patient reports having stabbing pain across her chest and felt dizzy as if she could pass out and was short of breath. No palpitations, diaphoresis, or nausea/vomiting. Family check blood pressure and was noted to be elevated. Speech continued to be slurred and she had mild right leg weakness so they brought her into the ED for further evaluation and treatment. Code stroke was called in ED due to dysarthria. Blood pressure upon arrival was 240/105. Symptoms resolved with improvement in blood pressure. Patient does report smoking marijuana earlier in the day yesterday. PAST MEDICAL HISTORY Cardiovascular: CAD, HTN, Hyperlipidemia Pulmonary: COPD Psych: Anxiety, Depression Musculoskeletal: Osteoarthritis Endocrine: Diabetes PAST SURGICAL HISTORY Past Surgical History: Hysterectomy FAMILY HISTORY Family History: Heart Disease, Hypertension SOCIAL HISTORY Smoke: Quit ALCOHOL: none Drugs: None Lives: with Family CURRENT MEDICATIONS CURRENT MEDICATIONS Current Medications Medications (Trade) Dose Ordered Sig/Cara Route PRN Reason Start Time Stop Time Status Last Admin Dose Admin Iohexol (Omnipaque 300 Mg/ml) 75 ml 1X ONCE IV 07/12/21 00:30 07/12/21 00:31 DC 07/12/21 02:10 Metoprolol Tartrate (Lopressor Vial) 5 mg 1X ONCE IVP 07/12/21 00:30 07/12/21 00:31 DC 07/12/21 00:53 Sodium Chloride 1,000 ml @ 1,000 mls/hr 1X ONCE IV 07/12/21 02:00 07/12/21 02:59 DC 07/12/21 02:22 Hydralazine HCl (Apresoline Inj) 10 mg 1X ONCE IVP 07/12/21 03:00 07/12/21 03:01 DC 07/12/21 03:03 Nicardipine HCl 50 mg/Sodium Chloride 250 ml @ 25 mls/hr CONT PRN IV SEE I/O RECORD 07/12/21 03:45 07/12/21 04:05 Dexamethasone Sodium Phosphate (Decadron) 10 mg 1X ONCE IV 07/12/21 04:00 07/12/21 04:01 DC 07/12/21 03:58 Ceftriaxone Sodium (Rocephin) 1 gm 1X ONCE IVP 07/12/21 04:00 07/12/21 04:01 DC 07/12/21 04:05 Azithromycin 250 ml @ 250 mls/hr 1X ONCE IV 07/12/21 04:00 07/12/21 04:59 DC 07/12/21 04:12 Iohexol (Omnipaque 350 Mg/ml) 75 ml 1X ONCE IV 07/12/21 04:30 07/12/21 04:31 DC 07/12/21 04:18 Ondansetron HCl (Zofran) 8 mg 1X ONCE IVP 07/12/21 04:30 07/12/21 04:31 DC 07/12/21 04:20 Albuterol/ Ipratropium (Duoneb) 9 ml 1X ONCE NEB 07/12/21 04:30 07/12/21 04:31 DC 07/12/21 04:30 ALLERGIES ALLERGIES: Coded Allergies: Penicillins (Verified Allergy, Intermediate, 07/12/21) ROS Review of System 14 point ROS conducted with pertinent positives noted above in HPI PHYSICAL EXAM General: Alert, Oriented X3, Cooperative, No acute distress HEENT: Atraumatic, Mucous membr. moist/pink Lungs: Clear to auscultation Heart: Regular rate Abdomen: Soft, No tenderness Extremities: No edema, Normal pulses Skin: No breakdown, No significant lesion Neuro: Normal speech, Sensation intact Psych/Mental Status: Mental status NL, Mood NL MUSCULOSKELETAL: No joint tenderness, Osteoarthritic changes both hands VITALS/I&O VITALS/I&O: Vital Signs Date Time Temp Pulse Resp B/P (MAP) Pulse Ox O2 Delivery O2 Flow Rate FiO2 07/12/21 11:16 98.8 65 18 143/80 (101) 97 Nasal Cannula 2.0 98.8 I & O 07/11/21 07/11/21 07/12/21 15:00 23:00 07:00 Intake Total 1002 ml Balance 1002 ml LABS Lab: Laboratory Tests Test 07/11/21 23:23 07/11/21 23:25 07/11/21 23:55 07/12/21 00:10 Glucose (Fingerstick) 119 mg/dL (70-99) H White Blood Count 5.5 x10^3/uL (4.0-11.0) Red Blood Count 5.14 x10^6/uL (3.50-5.40) Hemoglobin 16.0 g/dL (12.0-15.5) H Hematocrit 46.9 % (36.0-47.0) Mean Corpuscular Volume 91 fL (79-100) Mean Corpuscular Hemoglobin 31 pg (25-35) Mean Corpuscular Hemoglobin Concent 34 g/dL (31-37) Red Cell Distribution Width 14.6 % (11.5-14.5) H Platelet Count 204 x10^3/uL (140-400) Neutrophils (%) (Auto) 44 % (31-73) Lymphocytes (%) (Auto) 45 % (24-48) Monocytes (%) (Auto) 9 % (0-9) Eosinophils (%) (Auto) 1 % (0-3) Basophils (%) (Auto) 1 % (0-3) Neutrophils # (Auto) 2.4 x10^3/uL (1.8-7.7) Lymphocytes # (Auto) 2.5 x10^3/uL (1.0-4.8) Monocytes # (Auto) 0.5 x10^3/uL (0.0-1.1) Eosinophils # (Auto) 0.1 x10^3/uL (0.0-0.7) Basophils # (Auto) 0.1 x10^3/uL (0.0-0.2) Prothrombin Time 11.9 SEC (11.7-14.0) Prothrombin Time INR 0.9 (0.8-1.1) Activated Partial Thromboplast Time 30 SEC (24-38) D-Dimer (Ann) 2.28 ug/mlFEU (0.00-0.50) H Sodium Level 145 mmol/L (136-145) Potassium Level 3.7 mmol/L (3.5-5.1) Chloride Level 107 mmol/L (98-107) Carbon Dioxide Level 31 mmol/L (21-32) Anion Gap 7 (6-14) Blood Urea Nitrogen 13 mg/dL (7-20) Creatinine 1.1 mg/dL (0.6-1.0) H Estimated GFR (Cockcroft-Gault) 49.8 Glucose Level 121 mg/dL (70-99) H Calcium Level 9.7 mg/dL (8.5-10.1) Troponin I Quantitative < 0.017 ng/mL (0.000-0.055) JU-Upx-L-Type Natriuretic Peptide 559 pg/mL (0-124) H Urine Collection Type Unknown Urine Color Yellow Urine Clarity Clear Urine pH 6.5 (<5.0-8.0) Urine Specific [place] 1.015 (1.000-1.030) Urine Protein Negative mg/dL (NEG-TRACE) Urine Glucose (UA) Negative mg/dL (NEG) Urine Ketones (Stick) Negative mg/dL (NEG) Urine Blood Negative (NEG) Urine Nitrite Negative (NEG) Urine Bilirubin Negative (NEG) Urine Urobilinogen Dipstick 0.2 mg/dL (0.2 mg/dL) Urine Leukocyte Esterase Negative (NEG) Urine RBC 1-2 /HPF (0-2) Urine WBC 1-4 /HPF (0-4) Urine Squamous Epithelial Cells Mod /LPF Urine Bacteria Few /HPF (0-FEW) Urine Mucus Slight /LPF Urine Opiates Screen Neg (NEG) Urine Methadone Screen Neg (NEG) Urine Barbiturates Neg (NEG) Urine Phencyclidine Screen Neg (NEG) Urine Amphetamine/Methamphetamine Neg (NEG) Urine Benzodiazepines Screen Pos (NEG) Urine Cocaine Screen Neg (NEG) Urine Cannabinoids Screen Pos (NEG) Urine Ethyl Alcohol Neg (NEG) Test 07/12/21 03:35 07/12/21 04:05 07/12/21 10:15 SARS-CoV-2 RNA (MISSAEL) Negative (Negative) SARS-CoV-2 Antigen (Rapid) Negative (NEGATIVE) Troponin I Quantitative 0.020 ng/mL (0.000-0.055) 0.019 ng/mL (0.000-0.055) Laboratory Tests 07/11/21 23:25 Laboratory Tests 07/11/21 23:25 ECHOCARDIOGRAM ECHOCARDIOGRAM <Conclusion> The left ventricular systolic function is normal and the ejection fraction is within normal range. The Ejection Fraction is 55-60%. Septal motion consistent with conduction abnormality. Otherwise, grossly normal wall motion. DATE: 03/06/20 0937 HEART CATH HEART CATH Findings. Hemodynamics. Aortic root pressure initially at 106/70. Final aortic root pressure 140/92. Coronaries. Left main. The left main was a short normal vessel with no lesions. Left anterior descending. The LAD had a mid 20-25% lesion. Left circumflex. The left circumflex had a mid 40% lesion. Right coronary artery. The right coronary was a large dominant vessel. It had a proximal 10-15% lesion and a mid subtotal complex lesion. Right coronary artery post stent procedure at a 0% residual. <Conclusion> ST elevated myocardial infarction secondary to a subtotal lesion in the right coronary artery. Successful stent placement to the right coronary artery with 0% residual lesion. Moderate disease in the left system. DATE: 02/27/16 1351 ASSESSMENT/PLAN ASSESSMENT/PLAN 1. Chest pain, mixed features; AMI ruled out 2. CAD s/p PCI/stent to RCA in 2016. Moderate disease was noted in the left system at that time as noted above 3. Hypertensive urgency; better controlled 4. Hypertensive encephalopathy; resolved 5. Hyperlipidemia; statin 6. Diabetes, II 7. Anxiety, depression 8. Marijuana use; cessation discussed Recommendations Resume secondary prevention measures Echo to assess LV systolic function BP control Will need further ischemic evaluation Outpatient stress test an follow up with Dr. Plasencia as scheduled. Supportive care PAYTON PLASENCIA MD 07/12/21 1626: CARDIAC CONSULT ASSESSMENT/PLAN ASSESSMENT/PLAN Patient seen and examined I agree with our nurse practitioners assessment and plan. Chest pain, mixed features; AMI ruled out. Feeling better. History of coronary disease with a stent in 2016. Continuing medical treatment. Echo for LV function. Outpatient ischemia evaluation and follow-up. Hypertensive urgency; better controlled Hypertensive encephalopathy; resolved Hyperlipidemia; statin Diabetes, II. continue present treatment. DARIELA DUARTE APRN Jul 12, 2021 11:40 PAYTON PLASENCIA MD Jul 12, 2021 16:26
--- NOTE | 2021-07-12 12:26 | PDOC2 ---
NEUROLOGY CONSULT Date of Service DOS: DATE: 07/12/21 TIME: 12:14 Reason for Consult Reason for Consult: Confusion Referring Physician Referring Physician: Dr. Hanson Source Source: Chart review, Patient History of Present Illness History of Present Illness The patient is a 66-year-old right-handed female who came to emergency depar tment last night with confusion at 10 PM last night. She was sitting in a chair. She acted as if she were intoxicated, not getting her words out, but put her hand over her chest. She has felt weak all day and did have marijuana earlier in the morning. She felt like she was going to pass out. Family checked her blood pressure, systolic blood pressure was 179. Patient came to [facility] emergency department and code stroke was activated. Pressure was 240/105. I discussed the case with Dr. Cifuentes. There was some dysarthria and right leg weakness initially which resolved. We decided that the patient was not a candidate for alteplase and that most likely this was hypertensive encephalopathy. She says that she had a similar episode 3 to 4 years ago, I have no record of ever seeing her for hypertensive encephalopathy in the past. She denies any history of stroke, seizure, or head injury. Past Medical History Cardiovascular: CAD, HTN, [place], Hyperlipidemia Pulmonary: Bronchitis, COPD Psych: Anxiety, Depression, Other (Marijuana use) Renal/: UTI Endocrine: Diabetes (Borderline, diet-controlled) Past Surgical History Past Surgical History: Hysterectomy, Other (Coronary stent, lumbar) Family History Family History: Cancer, CAD Social History Social History , smokes tobacco, resolved to stop, rare alcohol, retired Current Medications Current Medications Current Medications Iohexol (Omnipaque 300 Mg/ml) 75 ml 1X ONCE IV Last administered on 07/12/21at 02:10; Start 07/12/21 at 00:30; Stop 07/12/21 at 00:31; Status DC Info (CONTRAST GIVEN -- Rx MONITORING) 1 each PRN DAILY PRN MC SEE COMMENTS; Start 07/12/21 at 00:15; Stop 07/14/21 at 00:14 Metoprolol Tartrate (Lopressor Vial) 5 mg 1X ONCE IVP Last administered on 07/12/21at 00:53; Start 07/12/21 at 00:30; Stop 07/12/21 at 00:31; Status DC Sodium Chloride 1,000 ml @ 1,000 mls/hr 1X ONCE IV Last administered on 07/12/21at 02:22; Start 07/12/21 at 02:00; Stop 07/12/21 at 02:59; Status DC Hydralazine HCl (Apresoline Inj) 10 mg 1X ONCE IVP Last administered on 07/12/21at 03:03; Start 07/12/21 at 03:00; Stop 07/12/21 at 03:01; Status DC Nicardipine HCl 50 mg/Sodium Chloride 250 ml @ 25 mls/hr CONT PRN IV SEE I/O RECORD Last administered on 07/12/21at 04:05; Start 07/12/21 at 03:45 Dexamethasone Sodium Phosphate (Decadron) 10 mg 1X ONCE IV Last administered on 07/12/21at 03:58; Start 07/12/21 at 04:00; Stop 07/12/21 at 04:01; Status DC Ceftriaxone Sodium (Rocephin) 1 gm 1X ONCE IVP Last administered on 07/12/21at 04:05; Start 07/12/21 at 04:00; Stop 07/12/21 at 04:01; Status DC Azithromycin 250 ml @ 250 mls/hr 1X ONCE IV Last administered on 07/12/21at 04:12; Start 07/12/21 at 04:00; Stop 07/12/21 at 04:59; Status DC Iohexol (Omnipaque 350 Mg/ml) 75 ml 1X ONCE IV Last administered on 07/12/21at 04:18; Start 07/12/21 at 04:30; Stop 07/12/21 at 04:31; Status DC Ondansetron HCl (Zofran) 8 mg 1X ONCE IVP Last administered on 07/12/21at 04:20; Start 07/12/21 at 04:30; Stop 07/12/21 at 04:31; Status DC Albuterol/ Ipratropium (Duoneb) 9 ml 1X ONCE NEB Last administered on 07/12/21at 04:30; Start 07/12/21 at 04:30; Stop 07/12/21 at 04:31; Status DC Furosemide (Lasix) 40 mg 1X ONCE IVP ; Start 07/12/21 at 04:30; Stop 07/12/21 at 04:31; Status DC Active Scripts Active Metoprolol Tartrate 25 Mg Tablet 12.5 Mg PO BID Aspirin Ec (Aspirin) 81 Mg Tablet. 81 Mg PO [id number] Reported Clopidogrel (Clopidogrel Bisulfate) 75 Mg Tablet 75 Mg PO DAILY Amitriptyline Hcl 25 Mg Tablet 1 Tab PO QHS Lipitor (Atorvastatin Calcium) 80 Mg Tablet 80 Mg PO HS Losartan Potassium 50 Mg Tablet 50 Mg PO DAILY Xanax (Alprazolam) 0.25 Mg Tablet 0.25 Mg PO BID PRN Allergies Allergies: Coded Allergies: Penicillins (Verified Allergy, Intermediate, 07/12/21) ROS Review of System Positive for recent chest pain and dyspnea. Negative for fever, chills, weight loss, indigestion, hematochezia, melena, and dysuria. Full 14-point review of systems is negative. Physical Exam Physical Examination General: Well-developed, well-nourished white female in no acute distress HEENT: Normocephalic andatraumatic. Temporal arteriespulsatile and nontender.Fundoscopic exam unremarkable Neck: Supple without bruit, no meningismus Musculoskeletal: Stability:see neurologic. Gait exam:see neurologic. Tone:see neurologic.Strength:see neurologic. Neurological: Mental Status:intact, orientation, memory, attention span/concentration, language, fund of knowledge normal, except 1 day off on the date. Cranial Nerves:Pupils equal and reactive to light, extraocular movements areintact, visual [place] are full to confrontation. Facial sensation is normal. There is no facial asymmetry. Vestibulo-ocular reflex is intact. Palate elevates and tongue protrudes in midline. All other cranial related problems are negative except as mentioned before.Reflexes:2+ and symmetric with flexor plantar responses. Motor:5/5 strength with normal tone and bulk. Coordination:Finger-nose finger and qcrm-ec-loap testing are normal. Rapid alternating movements and fine finger movements are intact. Gait:Not tested. Sensory:Normal pinprick, vibration, light touch, proprioception. Vitals VITALS Vital Signs Date Time Temp Pulse Resp B/P (MAP) Pulse Ox O2 Delivery O2 Flow Rate FiO2 07/12/21 11:16 98.8 65 18 143/80 (101) 97 Nasal Cannula 2.0 98.8 Labs Labs Laboratory Tests Test 07/11/21 23:23 07/11/21 23:25 07/11/21 23:55 07/12/21 00:10 Glucose (Fingerstick) 119 mg/dL (70-99) White Blood Count 5.5 x10^3/uL (4.0-11.0) Red Blood Count 5.14 x10^6/uL (3.50-5.40) Hemoglobin 16.0 g/dL (12.0-15.5) Hematocrit 46.9 % (36.0-47.0) Mean Corpuscular Volume 91 fL (79-100) Mean Corpuscular Hemoglobin 31 pg (25-35) Mean Corpuscular Hemoglobin Concent 34 g/dL (31-37) Red Cell Distribution Width 14.6 % (11.5-14.5) Platelet Count 204 x10^3/uL (140-400) Neutrophils (%) (Auto) 44 % (31-73) Lymphocytes (%) (Auto) 45 % (24-48) Monocytes (%) (Auto) 9 % (0-9) Eosinophils (%) (Auto) 1 % (0-3) Basophils (%) (Auto) 1 % (0-3) Neutrophils # (Auto) 2.4 x10^3/uL (1.8-7.7) Lymphocytes # (Auto) 2.5 x10^3/uL (1.0-4.8) Monocytes # (Auto) 0.5 x10^3/uL (0.0-1.1) Eosinophils # (Auto) 0.1 x10^3/uL (0.0-0.7) Basophils # (Auto) 0.1 x10^3/uL (0.0-0.2) Prothrombin Time 11.9 SEC (11.7-14.0) Prothromb Time International Ratio 0.9 (0.8-1.1) Activated Partial Thromboplast Time 30 SEC (24-38) D-Dimer (Ann) 2.28 ug/mlFEU (0.00-0.50) Sodium Level 145 mmol/L (136-145) Potassium Level 3.7 mmol/L (3.5-5.1) Chloride Level 107 mmol/L (98-107) Carbon Dioxide Level 31 mmol/L (21-32) Anion Gap 7 (6-14) Blood Urea Nitrogen 13 mg/dL (7-20) Creatinine 1.1 mg/dL (0.6-1.0) Estimated GFR (Cockcroft-Gault) 49.8 Glucose Level 121 mg/dL (70-99) Calcium Level 9.7 mg/dL (8.5-10.1) Troponin I Quantitative < 0.017 ng/mL (0.000-0.055) YY-Doq-C-Type Natriuretic Peptide 559 pg/mL (0-124) Urine Collection Type Unknown Urine Color Yellow Urine Clarity Clear Urine pH 6.5 (<5.0-8.0) Urine Specific [place] 1.015 (1.000-1.030) Urine Protein Negative mg/dL (NEG-TRACE) Urine Glucose (UA) Negative mg/dL (NEG) Urine Ketones (Stick) Negative mg/dL (NEG) Urine Blood Negative (NEG) Urine Nitrite Negative (NEG) Urine Bilirubin Negative (NEG) Urine Urobilinogen Dipstick 0.2 mg/dL (0.2 mg/dL) Urine Leukocyte Esterase Negative (NEG) Urine RBC 1-2 /HPF (0-2) Urine WBC 1-4 /HPF (0-4) Urine Squamous Epithelial Cells Mod /LPF Urine Bacteria Few /HPF (0-FEW) Urine Mucus Slight /LPF Urine Opiates Screen Neg (NEG) Urine Methadone Screen Neg (NEG) Urine Barbiturates Neg (NEG) Urine Phencyclidine Screen Neg (NEG) Urine Amphetamine/Methamphetamine Neg (NEG) Urine Benzodiazepines Screen Pos (NEG) Urine Cocaine Screen Neg (NEG) Urine Cannabinoids Screen Pos (NEG) Urine Ethyl Alcohol Neg (NEG) Test 07/12/21 03:35 07/12/21 04:05 07/12/21 10:15 SARS-CoV-2 RNA (MISSAEL) Negative (Negative) SARS-CoV-2 Antigen (Rapid) Negative (NEGATIVE) Troponin I Quantitative 0.020 ng/mL (0.000-0.055) 0.019 ng/mL (0.000-0.055) Laboratory Tests Test 07/11/21 23:23 07/11/21 23:25 07/11/21 23:55 07/12/21 00:10 Glucose (Fingerstick) 119 mg/dL (70-99) White Blood Count 5.5 x10^3/uL (4.0-11.0) Red Blood Count 5.14 x10^6/uL (3.50-5.40) Hemoglobin 16.0 g/dL (12.0-15.5) Hematocrit 46.9 % (36.0-47.0) Mean Corpuscular Volume 91 fL (79-100) Mean Corpuscular Hemoglobin 31 pg (25-35) Mean Corpuscular Hemoglobin Concent 34 g/dL (31-37) Red Cell Distribution Width 14.6 % (11.5-14.5) Platelet Count 204 x10^3/uL (140-400) Neutrophils (%) (Auto) 44 % (31-73) Lymphocytes (%) (Auto) 45 % (24-48) Monocytes (%) (Auto) 9 % (0-9) Eosinophils (%) (Auto) 1 % (0-3) Basophils (%) (Auto) 1 % (0-3) Neutrophils # (Auto) 2.4 x10^3/uL (1.8-7.7) Lymphocytes # (Auto) 2.5 x10^3/uL (1.0-4.8) Monocytes # (Auto) 0.5 x10^3/uL (0.0-1.1) Eosinophils # (Auto) 0.1 x10^3/uL (0.0-0.7) Basophils # (Auto) 0.1 x10^3/uL (0.0-0.2) Prothrombin Time 11.9 SEC (11.7-14.0) Prothromb Time International Ratio 0.9 (0.8-1.1) Activated Partial Thromboplast Time 30 SEC (24-38) D-Dimer (Ann) 2.28 ug/mlFEU (0.00-0.50) Sodium Level 145 mmol/L (136-145) Potassium Level 3.7 mmol/L (3.5-5.1) Chloride Level 107 mmol/L (98-107) Carbon Dioxide Level 31 mmol/L (21-32) Anion Gap 7 (6-14) Blood Urea Nitrogen 13 mg/dL (7-20) Creatinine 1.1 mg/dL (0.6-1.0) Estimated GFR (Cockcroft-Gault) 49.8 Glucose Level 121 mg/dL (70-99) Calcium Level 9.7 mg/dL (8.5-10.1) Troponin I Quantitative < 0.017 ng/mL (0.000-0.055) KH-Ydj-E-Type Natriuretic Peptide 559 pg/mL (0-124) Urine Collection Type Unknown Urine Color Yellow Urine Clarity Clear Urine pH 6.5 (<5.0-8.0) Urine Specific [place] 1.015 (1.000-1.030) Urine Protein Negative mg/dL (NEG-TRACE) Urine Glucose (UA) Negative mg/dL (NEG) Urine Ketones (Stick) Negative mg/dL (NEG) Urine Blood Negative (NEG) Urine Nitrite Negative (NEG) Urine Bilirubin Negative (NEG) Urine Urobilinogen Dipstick 0.2 mg/dL (0.2 mg/dL) Urine Leukocyte Esterase Negative (NEG) Urine RBC 1-2 /HPF (0-2) Urine WBC 1-4 /HPF (0-4) Urine Squamous Epithelial Cells Mod /LPF Urine Bacteria Few /HPF (0-FEW) Urine Mucus Slight /LPF Urine Opiates Screen Neg (NEG) Urine Methadone Screen Neg (NEG) Urine Barbiturates Neg (NEG) Urine Phencyclidine Screen Neg (NEG) Urine Amphetamine/Methamphetamine Neg (NEG) Urine Benzodiazepines Screen Pos (NEG) Urine Cocaine Screen Neg (NEG) Urine Cannabinoids Screen Pos (NEG) Urine Ethyl Alcohol Neg (NEG) Test 07/12/21 03:35 07/12/21 04:05 07/12/21 10:15 SARS-CoV-2 RNA (MISSAEL) Negative (Negative) SARS-CoV-2 Antigen (Rapid) Negative (NEGATIVE) Troponin I Quantitative 0.020 ng/mL (0.000-0.055) 0.019 ng/mL (0.000-0.055) Images Images CT angiogram of the head and neck with contrast: Reason for examination: Slurred speech and right leg weakness. Helical images were obtained through the head and neck with intravenous administration of 74 cc [id number] using angiographic protocol. 3-D MIPS reconstruction was performed in sagittal and coronal planes and volume rendered images were obtained. The intracranial carotid arteries are patent with no stenosis or evidence of occlusion. There is normal bifurcation of the intracranial carotid arteries into their respective anterior and middle cerebral arteries with no stenosis or occlusions evident. The intracranial vertebral arteries and basilar artery are patent with no stenosis or occlusion. There is normal blood flow in the superior cerebellar and posterior cerebral arteries. No aneurysms or arteriovenous malformations are seen. The dural sinuses and cerebral veins appear to be patent. The aortic arch shows no aneurysmal dilatation or dissection. There is normal origin of the right brachiocephalic artery, left common carotid artery and left subclavian artery from the arch. The vertebral arteries arise from their respective subclavian arteries and show no stenoses to the basilar artery. The carotid arterial systems bilaterally are patent but there is some calcified plaque bilaterally at the carotid bulbs and at the origin of the internal carotid arteries with moderate stenosis at the origin of the right internal carotid artery. Jugular veins are patent. No abnormality seen at the thyroid gland. The trachea and visualized portion of the esophagus shows no abnormality. Vocal cords are symmetric. Vallecula and piriform sinuses show no abnormalities. No abnormality seen at the epiglottis. No abnormalities of seen at the parotid or submandibular glands. The vertebral bodies of the cervical spine are normally aligned anteriorly and posteriorly but there are degenerative changes in the spine from C5 through T1. Prevertebral soft tissues are normal. IMPRESSION: Calcific plaque at the carotid bulbs and extending into the internal carotid arteries with moderate stenosis of the right internal carotid artery. No other acute vascular abnormality seen in the head or neck. CT head without contrast INDICATION: Slurred speech. Right leg weakness. Code stroke. COMPARISON: 03/03/2020 TECHNIQUE: Axial CT imaging through the head without the use of intravenous contrast. Sagittal and coronal reformats were obtained. One or more of the following individualized dose reduction techniques were utilized for this examination: 1. Automated exposure control 2. Adjustment of the mA and/or kV according to patient size 3. Use of iterative reconstruction technique. FINDINGS: No acute intracranial hemorrhage. Burnett-white matter differentiation is maintained. No localized mass effect, midline shift or hydrocephalus. Intact calvarium. Underpneumatized mastoid air cells on the right. Adequately aerated partially imaged paranasal sinuses. The orbits are within normal limits. IMPRESSION: No acute intracranial hemorrhage or CT evidence for an acute cortical infarction. Assessment/Plan Assessment/Plan Impression: Hypertensive encephalopathy, resolved, no evidence of acute stroke, negative head CT and CT angiogram Chest pain, history of coronary artery disease, CT angiogram negative for aneurysm or dissection Known cannabinoids use Recommendations: Note that she is already on aspirin, clopidogrel, statin, needs to be renewed here in the hospital No need for additional neurological studies As already stated above, was not a candidate for alteplase 6 okay for discharge when blood pressure stable Follow-up with neurology as needed. Thank you for letting me help with the patient's care. CAIN GARNICA MD Jul 12, 2021 12:26
[2021-07-12] MEDS ORDERED: ASPIRIN ENTERIC COATED 81 MG TABLET.DR. PO SCH (13:00)
[2021-07-12] MEDS ORDERED: LOSARTAN POTASSIUM 50 MG TABLET. PO SCH (13:00)
[2021-07-12] MEDS ORDERED: METOPROLOL TART IMMED RELEASE 25 MG TABLET. PO SCH (13:00)
[2021-07-12] MEDS ORDERED: CLOPIDOGREL BISULFATE 75 MG TABLET PO SCH (13:00)
[2021-07-12 14:21] VITALS: BP 135/76
--- NOTE | 2021-07-12 15:09 | NUR ---
SS following for discharge planning. SS reviewed pt chart and discussed with pt RN. Pt is from home with spouse and is currently on room air. Cardiology and Neurology consulted. Pt on PO diet. COVID19 negative. Discharge plan is currently to home when medically ready for discharge. SS will continue to follow for discharge planning. Addendum: 07/12/21 at 1641 by MARLIN SIEGEL SS Six minute walk completed due to concerns with oxygen. Pt requiring two liters nasal canula. Script received and script and referral phoned and faxed to [employer], ; fax [phone]. Oxygen tank provided to pt for home. Discharge order on the chart for home with self care.
--- NOTE | 2021-07-12 15:13 | DISCH ---
DISCHARGE INSTRUCTIONS Condition on Discharge Condition on Discharge: Stable Activity After Discharge Activity Instructions for Disc: No restrictions, Activity as tolerated Weight Bearing Status after Di: No restrictions Diet after Discharge Diet after Discharge: Cardiac Contacting the [facility] after DC Call your doctor for: If your condition worsens Follow-Up Follow up with: PCP within 2 weeks of discharge Follow Up With: Cardiology and neurology as needed Treatment/Equipment after DC Adaptive Equipment Issued: None ROXANN TERRELL MD Jul 12, 2021 15:13
--- NOTE | 2021-07-12 16:33 | CARD ---
MR#: [id number] Date of Study: 07/12/2021 Ordering Physician: DARIELA DUARTE, Referring Physician: DARIELA DUARTE, Tech: Yessy Olivas, [facility] APPROVED REPORT EXAM: Two-dimensional and M-mode echocardiogram with Doppler and color Doppler. Other Information Quality : AverageHR: 53bpm INDICATION Cardiac Disease: CAD Chest Pain RISK FACTORS Hypertension Hyperlipidemia Diabetes 2D DIMENSIONS Left Atrium(2D)2.8 (1.6-4.0cm)IVSd0.9 (0.7-1.1cm) Aortic Root(2D)3.2 (2.0-3.7cm)LVDd4.8 (3.9-5.9cm) LVOT Diameter2.0 (1.8-2.4cm)PWd0.7 (0.7-1.1cm) LVDs2.7 (2.5-4.0cm)FS (%) 43.4 % SV78.7 ml Aortic Valve AoV Peak David.114.9cm/sAoV VTI23.8cm AO Peak GR.5.3mmHgLVOT Peak David.114.2cm/s LVOT VTI 22.79cmAO Mean GR.3mmHg UVALDO (VMAX)2.83wy7ZAP (VTI)2.87cm2 Mitral Valve MV E Blcmvwxs78.7cm/sMV DECEL KWYA056jw MV A Vqdaulbp91.8cm/sMV E Mean Gr.1mmHg MV HZU13ieZ/A Ratio1.0 MVA (PHT)2.94cm2 TDI E/Lateral E'7.7E/Medial E'8.5 Pulmonary Valve PV Peak Nofgdlim203.7cm/sPV Peak Grad.4mmHg Tricuspid Valve TR P. Ptsnqdoz500il/sRAP NQXVHLRI1bwRg TR Peak Gr.51ezKyHHNV03kdIw Pulmonary Vein S1 Qhrstoqn40.5cm/sD2 Aytoooqh26.5cm/s PVa awdvnias782cvmp LEFT VENTRICLE The left ventricle is normal size. There is normal left ventricular wall thickness. The left ventricu lar systolic function is normal and the ejection fraction is within normal range. The Ejection Fracti on is 55-60%. There is normal LV segmental wall motion. Transmitral Doppler flow pattern is Grade II- pseudonormal filling dynamics. RIGHT VENTRICLE The right ventricle is normal size. There is normal right ventricular wall thickness. The right ventr icular systolic function is normal. ATRIA The left atrium size is normal. The right atrium size is normal. The interatrial septum is intact wit h no evidence for an atrial septal defect or patent foramen ovale as noted on 2-D or Doppler imaging. AORTIC VALVE The aortic valve is normal in structure and function. Doppler and Color Flow revealed no significant aortic regurgitation. There is no significant aortic valvular stenosis. Calculated aortic valve area is 3.07 cm2 with maximum pressure gradient of 6 mmHg and mean pressure gradient of 3 mmHg. MITRAL VALVE The mitral valve is normal in structure and function. There is no evidence of mitral valve prolapse. There is no mitral valve stenosis. Doppler and Color-flow revealed mild mitral regurgitation. TRICUSPID VALVE The tricuspid valve is normal in structure and function. Doppler and Color Flow revealed trace tricus pid regurgitation with an estimated PAP of 31 mmHg. There is no tricuspid valve stenosis. PULMONIC VALVE The pulmonic valve is not well visualized. Doppler and Color Flow revealed no pulmonic valvular regur gitation. GREAT VESSELS The aortic root is normal in size. The IVC is normal in size and collapses >50% with inspiration. PERICARDIAL EFFUSION There is no evidence of significant pericardial effusion. Critical Notification Critical Value: No <Conclusion> The left ventricle is normal size. The left ventricular systolic function is normal and the ejection fraction is within normal range. The Ejection Fraction is 55-60%. Doppler and Color Flow revealed no significant aortic regurgitation. There is no significant aortic valvular stenosis. Doppler and Color-flow revealed mild mitral regurgitation. Doppler and Color Flow revealed trace tricuspid regurgitation with an estimated PAP of 31 mmHg. Signed by : Liam Mcfarland MD Electronically Approved : 07/12/2021 16:33:16
--- NOTE | 2021-07-12 18:17 | NUR ---
Discharge Note: PAKO SCHAFER [address] Discharge instructions and discharge home medications reviewed with Patient and a copy given. All questions have been answered and understanding verbalized. The following instructions and handouts were given: Chest pain, Smoking Cessation, Alerted Mental status, Tips for Success, Oxygen use at home Patient discharged to home with self care via wheelchair and private vehicle. Iv out. Monitor off and placed at nursing station.
[2021-07-12] MEDS ORDERED: ATORVASTATIN CALCIUM 40 MG TABLET. PO SCH (21:00)
[2021-07-12] MEDS ORDERED: AMITRIPTYLINE HCL 25 MG TABLET. PO SCH (21:00)
== END 2021-07-12 18:24 | disposition home or self-care (01) ==
LOC: ER 22:56 → UNDOADMIN 07-12 02:31 → 6 SOUTH 07-12 02:31 → UNDODISIN 07-12 18:24
PROVIDERS: ADMIT Internal Medicine; ATTEND Internal Medicine
DX: I67.4 Hypertensive encephalopathy (principal); Z20.822 Contact with and (suspected) exposure to COVID-19; I16.0 Hypertensive urgency; F41.9 Anxiety disorder, unspecified; I10 Essential (primary) hypertension; I25.10 Atherosclerotic heart disease of native coronary artery without angina pectoris; I65.21 Occlusion and stenosis of right carotid artery; J44.9 Chronic obstructive pulmonary disease, unspecified; K44.9 Diaphragmatic hernia without obstruction or gangrene; F32.9 Major depressive disorder, single episode, unspecified; E78.5 Hyperlipidemia, unspecified; I25.2 Old myocardial infarction; E11.9 Type 2 diabetes mellitus without complications; M19.90 Unspecified osteoarthritis, unspecified site; I08.1 Rheumatic disorders of both mitral and tricuspid valves; F12.90 Cannabis use, unspecified, uncomplicated; R07.9 Chest pain, unspecified; Z88.0 Allergy status to penicillin; Z80.1 Family history of malignant neoplasm of trachea, bronchus and lung; Z82.49 Family history of ischemic heart disease and other diseases of the circulatory system; Z83.3 Family history of diabetes mellitus; Z87.891 Personal history of nicotine dependence; Z90.710 Acquired absence of both cervix and uterus; Z95.5 Presence of coronary angioplasty implant and graft; Z71.6 Tobacco abuse counseling
CPT/HCPCS: 36415; 70450; 70496; 70498; 71045; 71275; 80048; 80307; 81001; 82962; 83880; 84484; 85025; 85379; 85610; 85730; 87426; 93005; 93306; 94618; 96365; 96368; 96375; 99285; G0378; J0360; J0456; J0696; J1100; J2405; J3490; J7030; J7050; Q9967; U0003; U0005; 96361; 96374; G0379

== ENCOUNTER → 2021-08-13 | Outpatient (CLI) | payer MEDICARE, BC ==
[~2021-08-13] MED LIST changes: +AMIT25TA PO; +CLOP75TA PO; +REGADENOSON 0.4 MG/5 ML DISP.SYRIN. IV ONE
--- NOTE | 2021-08-13 13:41 | RAD ---
MR#: [id number] Date of Study: 08/13/2021 Ordering Physician: PAYTON PLASENCIA, Referring Physician: CHANNING COHN Tech: LENA Gray APPROVED REPORT Test Type: Pharmacological Stress Nurse/Tech: Jayant ROLAND Test Indications: CAD Cardiac History: MD w/ stents x2, HTN, CVA Medications: ASA, Plavix. See EMR. Medical History: CVA, smoker. See EMR Resting ECG: SR Resting Heart Rate: 56 bpm Resting Blood Pressure: 116/60mmHg Pretest Chest Pain: No chest pain Nurse/Tech Notes Lungs CTA, diminished. Heart tones regular. Pharm. Details Pharmacologic stress testing was performed using 0.4mg per 5ml of regadenoson given intravenously ove r 7-10 seconds. Stress Symptoms Dyspnea. Resolved by end of test. Patient's SpO2 remained >94% on RA. POST EXERCISE Reason for Termination: Infusion complete Max HR: 74 bpm Max Blood Pressure: 114/57mmHg Blood Pressure response to exercise: Normal blood pressure response during stress. Chest Pain: No. Arrhythmia: No. ST Change: No. INTERPRETATION Stress EKG Conclusion: Baseline EKG showed sinus rhythm. No ischemic changes at peak stress. No arr hythmias. Imaging Protocol IMAGE PROTOCOL: Rest Tc-99m/stress Tc-99m 1 day Rest: Stress: Viability: Radiopharm.Tc99m SwmrbknqzLd13w Sestamibi Lksg02fCs 32mCi Duration 15min. 10min. Img Date 08/13/2021 08/13/2021 Inj-Img Ctaf35znt. 60min. Rest Admin Site:IV - Left AntecubitalAdministrator:LENA Gray Stress Admin Site: IV - Left AntecubitalAdministrator: Damion Louie, RT (R)(N) STRESS DATA End Diast. Vol.31.0mlAv. Heart Rate58.0bpm End Syst. Vol.4.0mlCO Index BSA0.0L/min Myocardial Mass68.0gEject. Kmtoawdo01.0% Stress Rates Pk. Fill Rate2.55EDV/secLVtime Pk. Fill 353.60msec Pk. Empty Rate4.73ESV/secLVtime Pk. Ousds091.98msec /3 Pk. Fill0.78EDV/sec Stress Scores Regional WT0.00Summed WT0.00 Regional WM0.00Summed WM4.00 Study quality was good. Left Ventricular size was Normal at Rest and Stress. Lung uptake was . Left Ventricular ejection fraction is %. The rest and stress images show normal perfusion, normal contraction and thickening. LV Perf. Quant 17 Seg. SSS0.00 17 Seg. SRS0.00 17 Seg. SDS0.00 Stress Defect Extent (% LAD)0.00Rest Defect Extent (% LAD)0.00Rev. Defect Extent (% LAD)0.00 Stress Defect Extent (% LCX) 0.00Rest Defect Extent (% LCX)0.00Rev. Defect Extent (% LCX)0.00 Stress Defect Extent (% RCA)0.00Rest Defect Extent (% RCA)0.00Rev. Defect Extent (% RCA)0.00 Stress Defect Extent (% ROBERTO)0.00Rest Defect Extent (% ROBERTO)0.00Rev. Defect Extent (% ROBERTO)0.00 Conclusion 1. Regadenoson cardioisotope stress test did not show any evidence of ischemia or infarct. 2. Normal left ventricular systolic function with ejection fraction calculated at 87%. 3. Low risk for cardiac events. Signed by : Gael Badillo, Electronically Approved : 08/13/2021 13:41:51
== END ==
LOC: NM 09:26
PROVIDERS: ATTEND Internal Medicine Cardiovascular Disease
DX: R07.9 Chest pain, unspecified (principal)
CPT/HCPCS: 78452; 93017; A9500; J2785